=== PATIENT | female | born 1980 | race Caucasian/White ===

== ENCOUNTER → 2021-10-19 12:27 | Outpatient (CLI) | payer BC, SELFPAY ==
--- NOTE | ~2021-10-19 | MM_ITS ---
EXAMINATION: MM screening natty BI w javan HISTORY: Screening TECHNIQUE: Craniocaudal and mediolateral oblique 3-D tomosynthesis images were obtained and synthetic 2-D images were generated. CAD analysis was submitted and interpreted. COMPARISON: No prior mammogram is available for comparison at this institution. BREAST PARENCHYMAL COMPOSITION: The breasts are heterogeneously dense, which may obscure small masses FINDINGS: There is no evidence of suspicious mass, calcification, or architectural distortion to sugg est malignancy in either breast. There has been no suspicious interval change. IMPRESSION: 1. No mammographic evidence of malignancy. 2. Recommend routine screening mammography in one year. BI-RADS Category 1: Negative Reviewed, dictated and finalized at location A.
== END ==
PROVIDERS: PCP Family Medicine; Visit Provider Obstetrics & Gynecology
DX: Z12.31 Encounter for screening mammogram for malignant neoplasm of breast (principal)
CPT/HCPCS: 77063; 77067

== ENCOUNTER 2021-12-04 13:04 | Outpatient (CLI) | payer BC, SELFPAY ==
--- NOTE | ~2021-12-04 | US_ITS ---
US axilla RT 12/04/2021 14:08 Indication: Right axillary swelling Procedure: High-resolution Limited ultrasound of the right axilla Comparison: No prior studies for comparison. Findings: Normal heterogeneous echotexture in the right axilla. No discrete mass identified. Impression: 1: Normal ultrasound of the right axilla without evidence for mass or fluid collection. Reviewed, dictated and finalized at location A. Impression: 1: Normal ultrasound of the right axilla without evidence for mass or fluid col lection.
== END 2021-12-04 13:05 | disposition home or self-care (01) ==
PROVIDERS: PCP Family Medicine; Visit Provider Obstetrics & Gynecology
DX: M79.89 Other specified soft tissue disorders (principal)
CPT/HCPCS: 76882

== ENCOUNTER → 2022-09-22 08:11 | Outpatient (CLI) | payer BC, SELFPAY ==
--- NOTE | ~2022-09-22 | MMUS_ITS ---
EXAMINATION: MM diagnostic natty RT w javan, US breast RT limited HISTORY: Right breast pain TECHNIQUE: Craniocaudal, mediolateral, and mediolateral oblique 3-D tomosynthesis images of the right breast were performed and synthetic 2-D images were generated. CAD analysis was submitted and interp reted. High resolution limited right breast ultrasound was performed. COMPARISON: 10/19/2021 BREAST PARENCHYMAL COMPOSITION: The breasts are heterogeneously dense, which may obscure small masses . FINDINGS: MAMMOGRAPHIC FINDINGS: No suspicious mass, calcification, or architectural distortion are identified to suggest malignancy. There has been no suspicious interval change. No mammographic correlate is identified for the patient 's reported right breast pain. ULTRASOUND: There is no evidence of focal abnormal solid or cystic mass in the vicinity of the patient's right br east pain. Normal lymph nodes are noted in the right axilla. IMPRESSION: 1. No specific mammographic or sonographic correlate is identified for the patient's right breast roland n. Further evaluation at this time should be based on clinical assessment. Continued follow-up physic al examination is recommended. 2. Recommend routine screening mammography, due on the left in one month. BI-RADS Category 1: Negative Reviewed, dictated and finalized at location A. IMPRESSION: 1. No specific mammographic or sonographic correlate is identified for the roberto ent's right breast pain. Further evaluation at this time should be based on cli nical assessment. Continued follow-up physical examination is recommended. 2. Recommend routine screening mammography, due on the left in one month. BI-RADS Category 1: Negative
== END ==
PROVIDERS: PCP Surgery; Visit Provider Obstetrics & Gynecology
DX: N64.4 Mastodynia (principal)
CPT/HCPCS: 76642; 77061; 77065; G0279

== ENCOUNTER → 2022-12-16 14:54 | Outpatient (CLI) | payer BC, SELFPAY ==
--- NOTE | ~2022-12-16 | MM_ITS ---
EXAMINATION: MM screening [facility] BI w javan HISTORY: Screening TECHNIQUE: Craniocaudal and mediolateral oblique 3-D tomosynthesis images were obtained and synthetic 2-D images were generated. CAD analysis was submitted and interpreted. COMPARISON: Comparison to multiple prior studies sequentially, with oldest reviewed study dated 10/19. BREAST PARENCHYMAL COMPOSITION: There are scattered areas of fibroglandular density. FINDINGS: There is no evidence of suspicious mass, calcification, or architectural distortion to sugg est malignancy in either breast. There has been no suspicious interval change. IMPRESSION: 1. No mammographic evidence of malignancy. 2. Recommend routine screening mammography in one year. BI-RADS Category 1: Negative Reviewed, dictated and finalized at location A.
== END ==
PROVIDERS: PCP Surgery; Visit Provider Obstetrics & Gynecology
DX: Z12.31 Encounter for screening mammogram for malignant neoplasm of breast (principal)
CPT/HCPCS: 77063; 77067

== ENCOUNTER 2023-06-24 07:12 | Outpatient (CLI) | payer BC, SELFPAY ==
--- NOTE | ~2023-06-24 | XR_ITS ---
EXAMINATION: XR abdomen/kub 1V DATE: 06/24/2023 07:27 INDICATION: Unspecified abdominal pain. TECHNIQUE: A supine view of the abdomen on 2 radiographs was obtained. COMPARISON: None. FINDINGS: There are no dilated loops of bowel. There is a large volume of stool in the colon. IMPRESSION: 1. Nonobstructive bowel gas pattern. Reviewed, dictated and finalized at location A.
== END 2023-06-24 07:13 ==
PROVIDERS: PCP Physician Assistant Medical; Visit Provider Physician Assistant Medical
DX: R10.9 Unspecified abdominal pain (principal)
CPT/HCPCS: 74018

== ENCOUNTER 2023-12-18 08:03 | Emergency (ER) | payer BC, SELFPAY ==
--- NOTE | ~2023-12-18 | XR_ITS ---
Clinical Indication: Cough, chest pain PA and lateral views of the chest: Comparison: 02/20/2019 Findings: The lungs are clear, without evidence of focal consolidation or pleural effusion. Cardiome diastinal silhouette is within normal limits. Bones and soft tissues are unremarkable. Impression: Normal chest. Reviewed, dictated and finalized at [facility]. Impression: Normal chest.
--- NOTE | 2023-12-18 08:04 | ED.URI ---
HPI - URI/Sore Throat General Chief Complaint: Upper Respiratory Infection Stated Complaint: cough / congestion Time Seen by Provider: 12/18/23 08:04 Source: patient Mode of arrival: ambulatory Limitations: no limitations History of Present Illness HPI Narrative: Christina is a 43-year-old female patient presenting to the clinic today with complaints of cough and sinus/chest congestion x1 week. She reports she is having a productive cough with green phlegm. She reports a low-grade fever. No shortness of breath or chest pain unless she is coughing. History of chronic sinusitis. Does report a lot of sinus pressure and green nasal drainage. MD elicited complaint: cough and nasal congestion Related Data Home Medications Medication Instructions Recorded Confirmed spironolactone 100 mg tablet 100 mg PO DAILY 04/02/22 12/18/23 spironolactone 50 mg tablet 50 mg PO DAILY 04/02/22 12/18/23 Allergies Allergy/AdvReac Type Severity Reaction Status Date / Time No Known Allergies Allergy Verified 12/18/23 08:22 Review of Systems Review of Systems: Pertinent positives per HPI. Patient denies any fever, chills, rash, visual changes, dizziness, palpitations, nausea, vomiting, diarrhea, constipation, abdominal pain, or any urinary issues. [facility] Past Medical History Medical History Anxiety Migraine Seasonal allergies Surgical History Surgical History H/O sinus surgery 07/2021 Family History Family History Other FH: kidney cancer Skin cancer Social History Social History Smoking status: Never smoker Second hand tobacco smoke exposure: No Alcohol intake: current Alcohol use details: socially Substance use: never Substance use type: does not use Lack of Transportation: No Lack of Food: Never True Current Housing: I Have Housing Concerned About Future Housing: No Difficulty Paying Gas/Electric Bills: No Difficulty Paying for Meds: No Currently Unemployed: No Education: Master's Degree or Higher Difficulty w/ Childcare or Family Care: No Living arrangements: with family Occupation/Education: occupation Additional occupation/education comments: teacher Gender identity (if verbalized by the patient): Female Sexual Orientation (if Verbalized by the Patient): Straight or Heterosexual Spiritual care concerns: No Agree to blood products: Yes Comments At the time of my signature, I reviewed and agree with the nursing past medical, surgical, social, and family history. There is no relevant family history pertinent to the patient complaint. Exam Narrative: General: Well-developed, well nourished, in no apparent distress Head: Normocephalic, atraumatic Eyes: Pupils equally round and reactive to light bilaterally, EOM intact, sclera and conjunctive clear, no discharge, lids normal Ears: TMs intact and congested, ear canals clear, no drainage, grossly hearing normal. Nose: Nares patent, green nasal drainage nasal discharge, moderate inflammation, maxillary and frontal sinus tenderness. Mouth: Oral pharynx without lesions or masses, good dentition, MMM. Postnasal drip Neck: Supple, trachea midline, no enlargement of anterior or posterior cervical nodes, no thyroid masses or goiter palpable. Cardio: Regular rate and rhythm, s1 and s2 normal, no murmur appreciated. Resp: Clear to auscultation bilaterally, no rhonchi, rales, wheezing or rubs Course Course Emergency Course: Portions of this record may have been created with voice recognition software. Level of Care: Express Care Visit Vital Signs Vital signs: Vital signs reviewed MDM - URI/Sore Throat MDM Narrative Medical decision making narrative: At the time of visit patient
[2023-12-18 08:11] VITALS: BP 109/58; PULSE 80; RESP 17; TEMP 36.1; O2SAT 100
== END 2023-12-18 09:22 | disposition home or self-care (01) ==
PROVIDERS: Emergency Provider Nurse Practitioner Family; PCP Family Medicine
DX: J01.00 Acute maxillary sinusitis, unspecified (principal)
CPT/HCPCS: 71046; 99213; G0463

== ENCOUNTER 2023-12-19 15:24 | Outpatient (CLI) | payer BC, SELFPAY ==
--- NOTE | ~2023-12-19 | MM_ITS ---
EXAMINATION: MM screening natty BI w javan HISTORY: Screening TECHNIQUE: Craniocaudal and mediolateral oblique 3-D tomosynthesis images were obtained and synthetic 2-D images were generated. CAD analysis was submitted and interpreted. COMPARISON: Comparison to multiple prior studies sequentially, with oldest reviewed study dated 10/19. BREAST PARENCHYMAL COMPOSITION: Not dense: There are scattered areas of fibroglandular density. FINDINGS: There is no evidence of suspicious mass, calcification, or architectural distortion to sugg est malignancy in either breast. There has been no suspicious interval change. IMPRESSION: 1. No mammographic evidence of malignancy. 2. Recommend routine screening mammography in one year. BI-RADS Category 1: Negative Reviewed, dictated and finalized at location B.
== END 2023-12-19 15:25 | disposition home or self-care (01) ==
LOC: MICIMG 15:24
PROVIDERS: PCP Obstetrics & Gynecology; Visit Provider Obstetrics & Gynecology
DX: Z12.31 Encounter for screening mammogram for malignant neoplasm of breast (principal)
CPT/HCPCS: 77063; 77067

== ENCOUNTER 2024-02-21 09:01 | Emergency (ER) | payer BC, SELFPAY ==
--- NOTE | ~2024-02-21 | XR_ITS ---
EXAMINATION: XR chest 2V DATE: 02/21/2024 09:45 INDICATION: Cough. TECHNIQUE: Frontal and lateral views of the chest were obtained. COMPARISON: Chest 2 views 12/18/2023 FINDINGS: There is no pneumonia, pleural effusion, or pneumothorax. The heart size is normal. IMPRESSION: 1. No acute cardiopulmonary disease. Reviewed, dictated and finalized at location A. ING MACHINE OPERATOR
[2024-02-21 09:22] VITALS: BP 114/61; PULSE 99; RESP 18; TEMP 36.4; O2SAT 99
--- NOTE | 2024-02-21 09:31 | ED_ITS ---
HPI - URI/Sore Throat General Chief Complaint: Upper Respiratory Infection Stated Complaint: cough/congestion Time Seen by Provider: 02/21/24 09:31 Source: patient Mode of arrival: ambulatory Limitations: no limitations History of Present Illness HPI Narrative: 43-year-old female presents with complaint of sinus congestion, sinus pressure, purulent drainage for 2 weeks. Reports cough for 4-5 days. Increase in fatigue, body aches, chills. Reports chest pain with coughing. Taking [id number] medications to treat symptoms with no relief. All systems reviewed and negative except as noted above. Related Data Home Medications ?Medication ?Instructions ?Recorded ?Confirmed ?Last Taken ?Type spironolactone 100 mg tablet 100 mg PO DAILY 04/02/22 12/18/23 Unknown History spironolactone 50 mg tablet 50 mg PO DAILY 04/02/22 12/18/23 Unknown History Allergies Allergy/AdvReac Type Severity Reaction Status Date / Time No Known Allergies Allergy Verified 02/21/24 09:50 Review of Systems Review of Systems: CONSTITUTIONAL: Denies fever, chills, or sweats. reports fatigue. EYES: Denies visual changes, redness, or discharge. ENT: reports rhinorrhea, congestion, sinus pressure. Denies sore throat, or otalgia. CARDIOVASCULAR: Denies chest pain, palpitations, or edema. RESPIRATORY: Reports cough chest congestion, pain with coughing. Denies dyspnea. GASTROINTESTINAL: Denies abdominal pain, nausea, vomiting, or diarrhea. GENITOURINARY: Denies dysuria or hematuria. SKIN: Denies rash or itching. MUSCULOSKELETAL: Denies back pain, joint pain . Reports myalgia. NEUROLOGIC: Denies headache, numbness, or weakness. PSYCHIATRIC: Denies anxiety or depression. All other systems reviewed are negative, except as documented in HPI. COUNT INCLUDES THE [facility] Past Medical History Medical History Anxiety Migraine Seasonal allergies Surgical History Surgical History H/O sinus surgery 07/2021 Family History Family History Other FH: kidney cancer Skin cancer Social History Social History (Reviewed 12/18/23 @ 08:05 by DAIJA Newton Smoking status: Never smoker Second hand tobacco smoke exposure: No Alcohol intake: current Alcohol use details: socially Substance use: never Substance use type: does not use Lack of Transportation: No Lack of Food: Never True Current Housing: I Have Housing Concerned About Future Housing: No Difficulty Paying Gas/Electric Bills: No Difficulty Paying for Meds: No Currently Unemployed: No Education: Master's Degree or Higher Difficulty w/ Childcare or Family Care: No Living arrangements: with family Occupation/Education: occupation Additional occupation/education comments: teacher Gender identity (if verbalized by the patient): Female Sexual Orientation (if Verbalized by the Patient): Straight or Heterosexual Spiritual care concerns: No Agree to blood products: Yes Comments At time of signature, agree with nursing past medical, surgical, social and f amily history. There is no relevant family history pertinent to the presenting complaint. Exam Narrative: GENERAL: This is a well-nourished, well-developed patient, in no apparent distress. HEAD: normocephalic, atraumatic. EYES: PERRL. Sclera clear/white. Vision is grossly intact. EARS: External ears normal, auditory canals clear and without drainage, TMs normal without perforation. Hearing grossly intact. NOSE: External nose normal with purulent nasal drainage, erythema and swelling to bilateral nares, moderate congestion, maxillary sinus tenderness on palpation bilaterally. THROAT: Mucous membranes moist, posterior pharynx clear. NECK: Neck supple, non-tender without lymphadenopathy, masses or thyromegaly. CARDIOVASCULAR: Regular rate and rhythm without murmurs, gallops, or rubs. RESPIRATORY: Decreased to bilateral lower lung matehw. Breath sounds equal bilaterally. No wheezes, rales, or rhonchi. SKIN: warm, Dry, intact with no suspicious lesions or rash, good texture and turgor. NEURO: awake, alert, and oriented to person, place and time. There were no obvious focal neurologic abnormalities. EXTREMITIES: No joint tenderness, effusion, or edema noted. Course Course Level of Care: Express Care Visit Vital Signs Vital signs: Vital Signs Temperature 36.4 C L 02/21/24 09:22 Pulse Rate 99 02/21/24 09:22 Respiratory Rate 18 02/21/24 09:22 Blood Pressure 114/61 02/21/24 09:22 Pulse Oximetry 99 02/21/24 09:22 Oxygen Delivery Room Air 02/21/24 09:22 Temperature 36.4 C L 02/21/24 09:22 Pulse Rate 99 02/21/24 09:22 Respiratory Rate 18 02/21/24 09:22 Blood Pressure 114/61 02/21/24 09:22 Pulse Oximetry 99 02/21/24 09:22 Oxygen Delivery Room Air 02/21/24 09:22 Reviewed MDM - URI/Sore Throat MDM Narrative Medical decision making narrative: positive for influenza A. Patient offered Tamiflu but did not feel was necessary. Will treat with antibiotic for bacterial sinusitis due to duration of symptoms and exam findings. Patient is well-appearing, nontoxic. Patient is aware of diagnosis, understands and agrees to treatment plan. Anticipatory guidance given. Patient agrees to follow-up as directed and is aware of reasons to seek care at the emergency department. Portions of this record may have been created with voice recognition software Imaging Data My impression: Agree with radiologist Radiologist's impression: EXAMINATION: XR chest 2V DATE: 02/21/2024 09:45 INDICATION: Cough. TECHNIQUE: Frontal and lateral views of the chest were obtained. COMPARISON: Chest 2 views 12/18/2023 FINDINGS: There is no pneumonia, pleural effusion, or pneumothorax. The heart size is normal. IMPRESSION: 1. No acute cardiopulmonary disease. Discharge Plan Discharge Clinical Impression: Influenza A, Acute bacterial sinusitis Patient Disposition: Home, Self-Care Condition: Stable Instructions: Antibiotic Form, Sinusitis (ED), Influenza (ED) Additional Instructions: your chest x-ray was normal today. You were positive for influenza A. Influenza is a virus and symptoms may last 10-14 days. I am prescribing an antibiotic today due to having sinus congestion for 2 weeks. Take antibiotic as prescribed until gone. Take Tylenol or ibuprofen every 6-8 hours as needed for pain and fever. Drink at least 64 oz of water a day. Follow-up with your primary care physician if symptoms are not improving. Patient Language: Korean Prescriptions: New benzonatate 200 mg capsule 200 mg PO TID PRN (Reason: cough) Qty: 20 0RF prednisone 20 mg tablet 40 mg PO DAILY 5 Days Qty: 10 0RF amoxicillin 875 mg tablet 875 mg PO Q12H 7 Days Qty: 14 0RF fluticasone propionate [Children's Flonase Allergy Rlf] 50 mcg/actuation spray,suspension 1 spray intranasal BID Qty: 16 0RF Rx Instructions: administer into each nostril No Action spironolactone 100 mg tablet 100 mg PO DAILY spironolactone 50 mg tablet 50 mg PO DAILY frovatriptan 2.5 mg tablet See Rx Instructions PO .COMPLEX Qty: 9 2RF Rx Instructions: take 1 tab at onset of headache; if no relief, may repeat 1 tab after at least 2 hrs; max = 2 tabs/24 hrs PO lisdexamfetamine 40 mg capsule 40 mg PO DAILY Qty: 30 0RF Follow-up/Referrals: Marli Pan MD [Primary Care Provider] - Time of Disposition: 09:57
[2024-02-21 09:58] LABS: EDCOVIDSCREEN Negative (Negative); EDINFLUASCREEN Positive (Negative); EDINFLUBSCREEN Negative (Negative)
--- OUTSIDE RECORDS SUMMARY | 2024-02-28 14:16 | XMS_ITS | Encounter Summary ---
Author Organization [facility] Address [address] [place] [address]. [place] [address] Care Team Providers Care Intervention Teacher Name Role Phone Unavailable Primary Care Provider Unavailabl e Encounter Details Date Type Department Care Team (Latest Contact Info) Description 09/16/2017 Abstract [facility] Social History Tobacco Use Types Packs/Day Years Used Date Smoking Tobacco: Never Assessed Comments Unknown Sex and Gender Information Value Date Recorded Sex Assigned at Not on file Legal Sex Female 6:11 PM CDT Gender Identity Not on file Sexual Orientation Not on file documented as of this encounter Plan of Treatment Not on file documented as of this encounter Visit Diagnoses Not on filedocumented in this encounter
--- OUTSIDE RECORDS SUMMARY | 2024-02-28 14:16 | XMS_ITS | Encounter Summary ---
Author Organization [facility] Address [address] [place] [address]. [place] [address] [place] [address] Care Team Providers Care Guest Service Supervisor Name Role Phone Unavailable Primary Care Provider Unavailabl e Encounter Details Date Type Department Care Team (Late st Contact Info) Description 06/01/2016 Abstract [facility] Family & Internal Medicine [facility] [address] [place] [address] [place] [address] [place] [address] Social History Tobacco Use Types Packs/Day Years Used Date Smoking Tobacco: Never Assessed Comments Unknown Sex and Gender Information Value Date Recorded Sex Assigned at Not on file Legal Sex Female 6:11 PM CDT Gender Identity Not on file Sexual Orientation Not on file documented as of this encounter Last Filed Vital Signs Vital Sign Reading Time Taken Comments Blood Pressure 120/66 06/01/2016 3:52 PM CDT Pulse 87 06/01/2016 3:52 PM CDT Temperature - - Respiratory Rate - - Oxygen Saturation - - Inhaled Oxygen Concentration - - Weight 80.3 kg (177 lb) 06/01/2016 3:52 PM CDT Height 165.1 cm (5' 5 ) 06/01/2016 3:52 PM CDT Body Mass Index 29.45 06/01/2016 3:52 PM CDT documented in this encounter Progress Notes * Perla Ozuna NP - 06/01/2016 3:30 PM CDT Reason For Visit Acute Follow-Up Visit Chief Complaint F/u on anxiety and med given. Pt stated she is doing great on Venlafaxine bid. She has no other complaints. History of Present Illness Anxiety Disorder (Follow-Up): The patient is being seen for follow-up of anxiety and Pt reports having been on Venlofexine and stopped taking it when ran out of the medication. Pt states when had themedication had been fine. Expresses that she has had both influenza A and B. Her child and herself have experienced it and was not able to get back in for appointment to get the refill. Pt wants to continue. The patient reports doing well and Pt has been restrated on the medication and at this timeis doing well. Pt states has not been able to get in to see a psychiatrist but is still planning onseeing the specialisit. Comorbid Illnesses: depression and insomnia improved. Interval symptoms: stable anxiety, stable restlessness, stable panic attacks and stable depression. Medications: the patient is adherent to her medication regimen, but she denies medication side effects. Review of Systems Constitutional, Eyes, ENT, Cardiovascular, Respiratory, Gastrointestinal, Genitourinary, Musculoskeletal, Integumentary, Neurological, Endocrine and Hematologic review of systems normal except as noted. Psychiatric: anxiety. Active Problems 1. Generalized anxiety disorder (300.02) (F41.1) Past Medical History 1. History of sinusitis (V12.69) (Z87.09) Surgical History 1. Denied: History of Surgery Family History 1. No pertinent family history Social History ? Never a smoker ?? Occasional alcohol use ?? Two children Current Meds 1. Fluticasone Propionate 50 MCG/ACT Nasal Suspension; USE 1 SPRAY IN EACH NOSTRIL TWICE DAILY; Therapy: 04Feb2016 to Recorded 2. Mirena (52 MG) 20 MCG/24HR Intrauterine Intrauterine Device; USE DIRECTED; Therapy: 04Feb2016 to Recorded 3. Venlafaxine HCl ER 37.5 MG Oral Capsule Extended Release 24 Hour; TAKE TWO TABS DAILY; Therapy: 04Feb2016 to (Evaluate:29May2016) Requested for: 29Apr2016; Last Rx:29Apr2016 Ordered 4. ZyrTEC Allergy 10 MG Oral Tablet; TAKE 1 TABLET DAILY; Therapy: [id number] to (Evaluate:05Mar2016) Recorded Allergies 1. No Known Drug Allergies Vitals Recorded: 01Jun2016 03:52PM Temperature 98.2 F Heart Rate 87 Systolic 120 Diastolic 66 O2 Saturation 98 Height 5 ft 5 in Weight 177 lb BMI Calculated 29.45 BSA Calculated 1.88 Physical Exam Constitutional General appearance: No acute distress, well appearing and well nourished. Eyes Conjunctiva and lids: No swelling, erythema or discharge. Ears, Nose, Mouth, and Throat External inspection of ears and nose: Normal. Otoscopic examination: Tympanic membranes translucent with normal light reflex. Canals patent without erythema. Oropharynx: Normal with no erythema, edema, exudate or lesions. Pulmonary Respiratory effort: No increased work of breathing or signs of respiratory distress. Auscultation of lungs: Clear to auscultation. Cardiovascular Palpation of heart: Normal PMI, no thrills. Auscultation of heart: Normal rate and rhythm, normal S1 and S2, without murmurs. Examination of extremities for edema and/or varicosities: Normal. Abdomen Abdomen: Non-tender, no masses. Liver and spleen: No hepatomegaly or splenomegaly. Lymphatic Palpation of lymph nodes in neck: No lymphadenopathy. Musculoskeletal Gait and station: Normal. Digits and nails: Normal without clubbing or cyanosis. Inspection/palpation of joints, bones, and muscles: Normal. Skin Skin and subcutaneous tissue: Normal without rashes or lesions. Neurologic Cranial nerves: Cranial nerves 2-12 intact. Reflexes: 2+ and symmetric. Sensation: No sensory loss. Psychiatric Orientation to person, place, and time: Normal. Mood and affect: Normal. Assessment 1. Generalized anxiety disorder (300.02) (F41.1) Plan Generalized anxiety disorder 1. Venlafaxine HCl ER 37.5 MG Oral Capsule Extended Release 24 Hour; TAKE TWO TABS DAILY Rx By: Perla Ozuna; Dispense: 0 Days ; #:60 Capsule Extended Release 24 Hour; Refill: 1; For: Generalized anxiety disorder; NASREEN = N; Verified Transmission to [employer] # [id number]; Last Updated By: Morgan Rowley; 06/01/2016 4:25:13 PM 2. Follow-up visit in 2 months Outpatient Follow-up Status: Complete Done: 01Jun2016 Ordered; For: Generalized anxiety disorder; Ordered By: Perla Ozuna Performed: Due: 15Jun2016; Last Updated By: Angella Kincaid; 06/01/2016 5:53:05 PM pt is doing very good with the medication Signatures Electronically signed by : Perla Ozuna NP; Jun 01 2016 10:10PM [employer] (Author) documented in this encounter Plan of Treatment Not on file documented as of this encounter Visit Diagnoses Not on filedocumented in this encounter
--- OUTSIDE RECORDS SUMMARY | 2024-02-28 14:16 | XMS_ITS | Encounter Summary ---
Author Organization [facility] Address [address] [place] [address]. [place] [address] Care Team Providers Care Tonnage Compilation Clerk Name Role Phone Unavailable Primary Care Provider Unavailabl e Encounter Details Date Type Department Care Team (Late st Contact Info) Description 03/17/1999 Abstract [facility] [address] [place] [address] , Toby Agrawal MD Social History Tobacco Use Types Packs/Day Years [...]
--- OUTSIDE RECORDS SUMMARY | 2024-02-28 14:16 | XMS_ITS | Encounter Summary ---
Author Organization [facility] Address [address] [place] [address]. [place] [address] [place] [address] Care Team Providers Care Airborne Electronics Analyst Name Role Phone Unavailable Primary Care Provider Unavailabl e Encounter Details Date Type Department Care Team (Late st Contact Info) Description 08/19/2016 Abstract [facility] Family & Internal Medicine [facility] [address] [place] [address] [place] [address] [place] [address] Social History Tobacco Use Types Packs/Day Years Used Date Smoking Tobacco: Never Assessed Comments Unknown Sex and Gender Information Value Date Recorded Sex Assigned at Not on file Legal Sex Female 6:11 PM CDT Gender Identity Not on file Sexual Orientation Not on file documented as of this encounter Last Filed Vital Signs Vital Sign Reading Time Taken Comments Blood Pressure 100/68 08/19/2016 1:22 PM CDT Pulse 87 08/19/2016 1:22 PM CDT Temperature - - Respiratory Rate - - Oxygen Saturation - - Inhaled Oxygen Concentration - - Weight 85.4 kg (188 lb 4 oz) 08/19/2016 1:22 PM CDT Height 165.1 cm (5' 5 ) 08/19/2016 1:22 PM CDT Body Mass Index 31.33 08/19/2016 1:22 PM CDT documented in this encounter Progress Notes * Perla Ozuna NP - 08/19/2016 1:20 PM CDT Chief Complaint F/u on anxiety. Pt stated no other complaints, and feeling good. History of Present Illness Anxiety Disorder (Follow-Up): The patient is being seen for follow-up of anxiety and Improved sincetaking the medicaiton. The patient reports doing well and Pt has been restrated on the medication and at this time is doing well. Pt states has not been able to get in to see a psychiatrist but is still planning on seeing the specialisit. Comorbid Illnesses: depression and insomnia [...] SPRAY IN EACH NOSTRIL TWICE DAILY; Therapy: [id number] to Recorded 2. Mirena (52 MG) 20 MCG/24HR Intrauterine Intrauterine Device; USE DIRECTED; Therapy: [id number] to Recorded 3. Venlafaxine HCl ER 37.5 MG Oral Capsule Extended Release 24 Hour; TAKE TWO TABS DAILY; Therapy: [id number] to (Last Rx:01Jun2016) Requested for: 01Jun2016 Ordered 4. ZyrTEC Allergy 10 MG Oral Tablet; TAKE 1 TABLET DAILY; Therapy: [id number] to (Evaluate:05Mar2016) Recorded Allergies 1. No Known Drug Allergies Vitals Recorded: 19Aug2016 01:22PM Temperature 98.9 F Heart Rate 87 Respiration 16 Systolic 100 Diastolic 68 O2 Saturation 98 Height 5 ft 5 in Weight 188 lb 4 oz BMI Calculated 31.33 BSA Calculated 1.93 Physical Exam Constitutional General appearance: No acute [...] #:60 Capsule Extended Release 24 Hour; Refill: 5; For: Generalized anxiety disorder; NASREEN = N; Sent To: [facility] # [id number] 2. Follow-up visit in 6 months Outpatient Follow-up Status: Hold For - Scheduling Requested for: 19Aug2016 Ordered; For: Generalized anxiety disorder; Ordered By: Perla Ozuna Performed: Due: [id number] Pt is feeling much better, anxiety better and is sleeping well at this time Pt is out of school less stresses but all is better. Signatures Electronically signed by : Perla Ozuna NP; Aug 19 2016 1:42PM SCREED PERSON (Author) documented in this encounter Plan of Treatment Not on file documented as of this encounter Visit Diagnoses Not on filedocumented in this encounter
--- OUTSIDE RECORDS SUMMARY | 2024-02-28 14:16 | XMS_ITS | Encounter Summary ---
Author Organization [facility] Address [address] [place] [address]. [place] [address] Care Team Providers Care Production Engineer Name Role Phone Unavailable Primary Care Provider Unavailabl e Encounter Details Date Type Department Care Team (Latest Contact Info) Description 01/04/2017 Abstract [facility] Zuly Agustin APNP Social History Tobacco Use Types Packs/Day Years Used Date Smoking Tobacco: Never Assessed Comments Unknown Sex and Gender Information Value Date Recorded Sex Assigned at Not on file Legal Sex Female 6:11 PM CDT Gender Identity Not on file Sexual Orientation Not on file documented as of this encounter Plan of Treatment Not on file documented as of this encounter Procedures Procedure Name Priority Date/Time Associated Diagnosis Comments CULTURE STREP A Routine 01/04/2017 3:45 PM TACTICAL INTELLIGENCE OFFICER documented in this encounter Results * CULTURE STREP A (01/04/2017 3:45 PM TACTICAL INTELLIGENCE OFFICER) THROAT CULTURE STREP A ONLY SPECIMEN DESCRIPTION ? - THROAT SPECIAL REQUESTS ? - NO SPECIAL REQUEST CULTURE ?- NO STREPTOCOCCUS PYOGENES (GROUP A) ISOLATED REPORT STATUS ?- FINAL 01/07/2017 [facility] TO [facility] CONVERSION 01/04/2017 3:45 PM TACTICAL INTELLIGENCE OFFICER 01/04/2017 3:45 PM TACTICAL INTELLIGENCE OFFICER Narrative [facility] TO EPIC CONVERSION - 01/07/2017 11:12 AM TACTICAL INTELLIGENCE OFFICER Result Communication: Discussed results with patient us Zuly DOWNS MICROBIOLOGY - GENERAL ORDER CHYNA Final Result [facility] TO EPIC CONVERSION documented in this encounter Visit Diagnoses Not on filedocumented in this encounter
--- OUTSIDE RECORDS SUMMARY | 2024-02-28 14:16 | XMS_ITS | Encounter Summary ---
Author Organization [facility] Address [address] [place] [address]. [place] [address] Care Team Providers Care Glue Maker Bone Name Role Phone Unavailable Primary Care Provider Unavailabl e Encounter Details Date Type Department Care Team (Latest Contact Info) Description 02/09/2016 Abstract [facility] Social History Tobacco Use Types [...]
--- OUTSIDE RECORDS SUMMARY | 2024-02-28 14:16 | XMS_ITS | Encounter Summary ---
Author Organization [facility] Address [address] [place] [address]. [place] [id number] [place], [place] [id number] Care Team Providers Care Cartographic Technician Name Role Phone Unavailable Primary Care Provider Unavailabl e Encounter Details Date Type Department Care Team (Late st Contact Info) Description 02/04/2016 Abstract [facility] Family & Internal Medicine [facility] [address] [place] [address] Kourtney Carias MD Social History Tobacco Use Types Packs/Day Years Used Date Smoking Tobacco: Never Assessed Comments Unknown Sex and Gender Information Value Date Recorded Sex Assigned at Not on file Legal Sex Female 6:11 PM CDT Gender Identity Not on file Sexual Orientation Not on file documented as of this encounter Last Filed Vital Signs Vital Sign Reading Time Taken Comments Blood Pressure 104/70 02/04/2016 9:21 AM [employer] Pulse 88 02/04/2016 9:21 AM [employer] Temperature - - Respiratory Rate - - Oxygen Saturation - - Inhaled Oxygen Concentration - - Weight 82.1 kg (181 lb) 02/04/2016 9:21 AM [employer] Height 165.1 cm (5' 5 ) 02/04/2016 9:21 AM [employer] Body Mass Index 30.12 02/04/2016 9:21 AM [employer] documented in this encounter Progress Notes * Kourtney Carias MD - 02/04/2016 9:00 AM CST Reason For Visit New Patient Visit Chief Complaint 1. Anxiety 2. Nasal Symptoms Here as a new patient, wants to discuss her anxiety. 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 Also just started with some nasal congestion. History of Present Illness Generalized Anxiety Disorder: The patient is being seen for an initial evaluation of an existing diagnosis of anxiety disorder. It is classified as generalized anxiety disorder. Symptoms: palpitations, chest discomfort, trouble breathing, paresthesias, nausea, excessive sweating, hot flashes, excessive worrying, fear of losing control and sleep disturbance, but no abdominal discomfort and no repetitive behaviors. Onset was 1-2 month(s) ago. Onset followed relationship problems, family problems and in grad school. The symptoms occur intermittently and more consistent over the last month. Relieving factors: meditation and exercise. Associated symptoms: poor concentration, memory impairment and depression symptoms, but no irritability, no agitation and no manic symptoms. Suicidal risk: no suicidal thoughts. Homicidal risk: no homicidal thoughts. The patient is not currently being treated for this problem. Current habits include 2 caffeine drinks per day. HPI Free Text: Netti pot rinses daily, zyrtec and fluticasone nasal spray Nasal Symptoms: Associated symptoms include nasal congestion, clear nasal discharge, postnasal drainage and cough, but no facial pain, no fever and no sore throat. Review of Systems Constitutional: no fever and no chills. ENT: nasal discharge. Respiratory: cough. Gastrointestinal: no abdominal pain, no constipation and no diarrhea. Genitourinary: no dysuria. no musculoskeletal symptoms Integumentary: no skin lesions. Neurological: no dizziness. Psychiatric: anxiety, sleep disturbances and depression, but not suicidal. Hematologic/Lymphatic: no tendency for easy bleeding and no tendency for easy bruising. Past Medical History 1. History of sinusitis (V12.69) (Z87.09) Surgical History 1. Denied: History of Surgery Family History Mother 1. No pertinent family history Social History ? Never a smoker ?? Occasional alcohol use ?? Two children Current Meds 1. Fluticasone Propionate 50 MCG/ACT Nasal Suspension; USE 1 SPRAY IN EACH NOSTRIL TWICE DAILY; Therapy: [id number] to Recorded Rx By: Kourtney Carias; Dispense: 0 Days ; #:1 X 16 GM Bottle; Refill: 1; For: Chronic sinusitis; NASREEN =N; Record 2. Mirena (52 MG) 20 MCG/24HR Intrauterine Intrauterine Device; USE DIRECTED; Therapy: [id number] to Recorded Rx By: Dr. Arellano; Dispense: 0 Days ; #: Sufficient Intrauterine Device; Refill: 0; NASREEN = N; Record; Last Updated By: Aida Jarrett; 02/04/2016 9:20:58 AM 3. ZyrTEC Allergy 10 MG Oral Tablet; TAKE 1 TABLET DAILY; Therapy: [id number] to (Evaluate:05Mar2016) Recorded Rx By: Kourtney Carias; Dispense: 30 Days ; #:30 Tablet; Refill: 0; For: Chronic sinusitis; NASREEN = N; Record Allergies 1. No Known Drug Allergies Recorded By: Aida Jarrett; 02/04/2016 9:19:26 AM Vitals Recorded: 04Feb2016 09:21AM Temperature 98.9 F Heart Rate 88 Respiration 16 Systolic 104 Diastolic 70 O2 Saturation 98 Height 5 ft 5 in Weight 181 lb BMI Calculated 30.12 BSA Calculated 1.9 Physical Exam Constitutional General appearance: No acute distress, well appearing and well nourished. Head and Face Head and face: Normal. Palpation of the face and sinuses: Abnormal. does have some mild TTP of maxillary sinuses. Eyes Conjunctiva and lids: No swelling, erythema or discharge. Ears, Nose, Mouth, and Throat Lips, teeth, and gums: Normal, good dentition. Oropharynx: Normal with no erythema, edema, exudate or lesions. Neck Neck: Supple, symmetric, trachea midline, no masses. Thyroid: Normal, no thyromegaly. Pulmonary Respiratory effort: No increased work of breathing or signs of respiratory distress. Auscultation of lungs: Clear to auscultation. Cardiovascular Auscultation of heart: Normal rate and rhythm, normal S1 and S2, no murmurs. Examination of extremities for edema and/or varicosities: Normal. Abdomen Abdomen: Non-tender, no masses. Liver and spleen: No hepatomegaly or splenomegaly. Lymphatic Palpation of lymph nodes in neck: No lymphadenopathy. Musculoskeletal Digits and nails: Normal without clubbing or cyanosis. Psychiatric Judgment and insight: Normal. Orientation to person, place, and time: Normal. Recent and remote memory: Intact. Mood and affect: Normal. Assessment 1. Generalized anxiety disorder (300.02) (F41.1) 2. Chronic sinusitis (473.9) (J32.9) Generalized anxiety with panic disorder. Most of her anxiety seems to manifest as panic attacks. Will start venlafaxine and follow up in 1 month Chronic sinusitis. Feels like may be getting a flare up of symtpoms. already using netti pot daily,flonase, and zyrtec. Advised to call if develops high fevers, increased pain Plan Chronic sinusitis 1. Follow-up visit in 1 month Outpatient Follow-up Status: Hold For - Scheduling Requested for: [id number] Ordered; For: Chronic sinusitis; Ordered By: Kourtney Carias Performed: Due: [id number] Generalized anxiety disorder 2. Venlafaxine HCl ER 37.5 MG Oral Capsule Extended Release 24 Hour; TAKE 1 CAPSULE ONCE DAILY WITH FOOD for 1 week then take two capsules daily for 3 weeks Rx By: Kourtney Carias; Dispense: 30 Days ; #:60 Capsule Extended Release 24 Hour; Refill: 0; For: Generalized anxiety disorder; NASREEN = N; Verified Transmission to [facility] # [id number]; Last Updated By: Morgan Rowley; 02/04/2016 9:44:39 AM Signatures Electronically signed by : Kourtney Carias M.D.; Feb 04 2016 9:59AM [employer] (Author) documented in this encounter Plan of Treatment Not on file documented as of this encounter Visit Diagnoses Not on filedocumented in this encounter
--- OUTSIDE RECORDS SUMMARY | 2024-02-28 14:16 | XMS_ITS | Encounter Summary ---
Author Organization [facility] Address [address] [place] [address]. [place] [id number] [place], [place] [id number] Care Team Providers Care Aquaculture Farm Manager Name Role Phone Unavailable Primary Care Provider Unavailabl e Encounter Details Date Type Department Care Team (Late st Contact Info) Description 02/08/2017 Abstract [facility] Family & Internal Medicine [facility] [address] [place] [address] Kourtney Carias MD Social History [...] Sign Reading Time Taken Comments Blood Pressure 112/70 02/08/2017 10:23 AM AUTOMATION CLERK Pulse 88 02/08/2017 10:23 AM AUTOMATION CLERK Temperature - - Respiratory Rate - - Oxygen Saturation - - Inhaled Oxygen Concentration - - Weight 88 kg (194 lb) 02/08/2017 10:23 AM AUTOMATION CLERK Height 165.1 cm (5' 5 ) 02/08/2017 10:23 AM AUTOMATION CLERK Body Mass Index 32.28 02/08/2017 10:23 AM AUTOMATION CLERK documented in this encounter Progress Notes * Kourtney Carias MD - 02/08/2017 10:20 AM CST Chief Complaint For about 10 days nasal congestion, sore throat, non-productive cough, bilateral ear pain. History of Present Illness Upper Respiratory Infection: The patient is being seen for an initial evaluation of an upper respiratory infection. Symptoms: nasal congestion, sore throat, hoarseness, dry cough and fever, but no chills and no general malaise. The patient is currently experiencing symptoms. Onset was gradual 10 day(s) ago. She describes this as moderate in severity, worsening and ear pain developed 2 days ago. Associated symptoms: ear pain and ear plugging, but no nausea, no vomiting and no diarrhea. Current treatment includes non-prescription cold medication and rinse , mucinex helps some. By report, there is fair symptom control. Pertinent medical history: recurrent sinusitis. Exposure history: an individual with a cough, an individual with an upper respiratory infection and son with positive strep. Review of Systems Constitutional: fever, feeling poorly and feeling tired. ENT: earache, nosebleeds, sore throat and nasal discharge. Cardiovascular: no chest pain. Respiratory: cough, but no shortness of breath. Gastrointestinal: no abdominal pain. Neurological: no dizziness. Active Problems 1. Generalized anxiety disorder (300.02) (F41.1) 2. Upper respiratory infection, acute (465.9) (J06.9) 3. Wears contact lenses (V41.0) (Z97.3) 4. Wears glasses (V49.89) (Z97.3) Past Medical History 1. History of sinusitis (V12.69) (Z87.09) Surgical History 1. Denied: History of Surgery Family History Mother 1. No pertinent family history Social History ?? Active advance directive (V49.89) (Z78.9) ?? Completed graduate school, masters degree ?? Daily caffeine consumption ?? 2 cups of coffee daily ?? Dental care, regularly ?? twice yearly ? Exercises regularly ?? House ? Never a smoker ?? Occasional alcohol use ?? 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 Three children ?? Two children Immunizations Influenza --- Series1: 04-Jan-2017 Current Meds 1. Fluticasone Propionate 50 MCG/ACT Nasal Suspension; USE 1 SPRAY IN EACH NOSTRIL TWICE DAILY; Therapy: 04Feb2016 to Recorded Rx By: Kourtney Carias; Dispense: 0 Days ; #:1 X 16 GM Bottle; Refill: 1; For: PMH: History of chronic sinusitis; NASREEN = N; Record 2. Mirena (52 MG) 20 MCG/24HR Intrauterine Intrauterine Device; USE DIRECTED; Therapy: [id number] to Recorded Rx By: Dr. Arellano; Dispense: 0 Days ; #: Sufficient Intrauterine Device; Refill: 0; NASREEN = N; Record; Last Updated By: Aida Jarrett; 02/04/2016 9:20:58 AM 3. Venlafaxine HCl ER 37.5 MG Oral Capsule Extended Release 24 Hour; TAKE 2 CAPSULES BY MOUTH DAILY; Therapy: 04Feb2016 to (Evaluate:16Feb2017) Requested for: 17Jan2017; Last Rx:17Jan2017 Ordered Rx By: Perla Ozuna; Dispense: 30 Days ; #:60 Capsule; Refill: 0; For: Generalized anxiety disorder; NASREEN = N; Verified Transmission to [facility]; Last Updated By: [employer] [employer] [facility]; 01/17/2017 12:46:59 PM 4. ZyrTEC Allergy 10 MG Oral Tablet; TAKE 1 TABLET DAILY; Therapy: 04Feb2016 to (Evaluate:05Mar2016) Recorded Rx By: Kourtney Carias; Dispense: 30 Days ; #:30 Tablet; Refill: 0; For: PMH: History of chronic sinusitis; NASREEN = N; Record Allergies 1. No Known Drug Allergies Recorded By: Aida Jarrett; 02/04/2016 9:19:26 AM Vitals Recorded: 08Feb2017 10:23AM Temperature 98.4 F Heart Rate 88 Respiration 16 Systolic 112 Diastolic 70 O2 Saturation 98 Height 5 ft 5 in Weight 194 lb BMI Calculated 32.28 BSA Calculated 1.95 Physical Exam Constitutional General appearance: No acute distress, well appearing and well nourished. voice hoarse.. Eyes Conjunctiva and lids: No swelling, erythema or discharge. Ears, Nose, Mouth, and Throat Otoscopic examination: Abnormal. minimal erythema on TM. Oropharynx: Abnormal. erythema no exudates.. Pulmonary Respiratory effort: No increased work of breathing or signs of respiratory distress. Auscultation of lungs: Clear to auscultation. Cardiovascular Auscultation of heart: Normal rate and rhythm, normal S1 and S2, without murmurs. Examination of extremities for edema and/or varicosities: Normal. Abdomen Abdomen: Non-tender, no masses. Musculoskeletal Digits and nails: Normal without clubbing or cyanosis. Psychiatric Orientation to person, place, and time: Normal. Mood and affect: Normal. Assessment 1. Acute sinusitis, recurrence not specified, unspecified location (461.9) (J01.90) Acute sinusitis. had augmentin in nov will try azithro this time. Advised to try holding flonase and see if helps with nosebleeds. Since starting back up again rec going back to ENT who had rec surgery Plan Acute sinusitis, recurrence not specified, unspecified location 1. Azithromycin 250 MG Oral Tablet; TAKE 2 TABLETS ON DAY 1 THEN TAKE 1 TABLET A DAY FOR 4 DAYS Rx By: Kourtney Carias; Dispense: 0 Days ; #:1 X 6 Tablet Box; Refill: 0; For: Acute sinusitis, recurrence not specified, unspecified location; NASREEN = N; Verified Transmission to [facility] # [id number]; Last Updated By: Morgan Rowley; 02/08/2017 10:40:43 AM Make sure to drink plenty of fluids and get plenty of rest, try tylenol or ibuprofen OTC PRN for myalgias/chills RTC as scheduled or sooner if no improvement Signatures Electronically signed by : Kourtney Carias M.D.; Feb 08 2017 10:43AM AUTOMATION CLERK (Author) documented in this encounter Plan of Treatment Not on file documented as of this encounter Visit Diagnoses Not on filedocumented in this encounter
--- OUTSIDE RECORDS SUMMARY | 2024-02-28 14:16 | XMS_ITS | Encounter Summary ---
Author Organization [facility] Address [address] [place] [address]. [place] [address] Care Team Providers Care Panel Sewer Name Role Phone Unavailable Primary Care Provider Unavailabl e Reason for Visit * Reason Comments Report (SCAN) [facility] - History and Physical Encounter Details Date Type Department Care Team ([facility] Contact Info) Description 03/20/2018 Scan HEALTH INFO [facility] Scanned, Documents Report (SCAN) ([facility] - History and Physical) Social History Tobacco Use Types Packs/Day Years [...]
--- OUTSIDE RECORDS SUMMARY | 2024-02-28 14:16 | XMS_ITS | Encounter Summary ---
Author Organization [facility] Address [address] [place] [address]. [place] [id number] [place], [place] [id number] Care Team Providers Care Director Digital Communications Name Role Phone Unavailable Primary Care Provider Unavailabl e Encounter Details Date Type Department Care Team (Late st Contact Info) Description 10/21/2016 Abstract [facility] Medical Group Family & Internal Medicine [facility] [address] [place] [address] Kehinde Schuster MD Social History Tobacco Use Types Packs/Day Years Used Date Smoking Tobacco: Never Assessed Comments Unknown Sex and Gender Information Value Date Recorded Sex Assigned at Not on file Legal Sex Female 6:11 PM CDT Gender Identity Not on file Sexual Orientation Not on file documented as of this encounter Last Filed Vital Signs Vital Sign Reading Time Taken Comments Blood Pressure 112/64 10/21/2016 3:15 PM CDT Pulse 86 10/21/2016 3:15 PM CDT Temperature - - Respiratory Rate - - Oxygen Saturation - - Inhaled Oxygen Concentration - - Weight 87.5 kg (193 lb) 10/21/2016 3:15 PM CDT Height - - Body Mass Index 32.12 08/19/2016 1:22 PM CDT documented in this encounter Progress Notes * Kehinde Schuster MD - 10/21/2016 3:00 PM CDT Reason For Visit Acute Visit Chief Complaint 1. Cold Symptoms C/o sore throat, dry cough, headache, for 3 days History of Present Illness HPI Free Text: A 36-year-old lady, very pleasant. She has a history of chronic sinusitis in the past. For the last6 months, rather unusual, she did not have any episodes but at this time it is acting up again, a lot of nasal congestion, pressure in the paranasal area. Tympanic membranes were normal. Some posterior drainage noted, headache. Cold Symptoms: Dilcia Camacho presents with complaints of sudden onset of constant episodes of moderate cold symptoms. Episodes started 3 days ago. Associated symptoms include nasal congestion, runny nose, post nasal drainage, scratchy throat, hoarseness, dry cough, facial pressure, headache, plugged ear(s) and ear pain, but no fever. Review of Systems See HPI for pertinent positives. Constitutional: no fever, no chills and no headache. ENT: see HPI. Cardiovascular: no chest pain, no intermittent leg claudication, no palpitations and no lower extremity edema. Respiratory: no shortness of breath, no cough, no wheezing, no shortness of breath during exertion and no PND. Gastrointestinal: no abdominal pain, no constipation, no heartburn, no vomiting, no diarrhea and nomelena. Genitourinary: no dysuria and no incontinence. Integumentary: no skin lesions and no skin rash. Musculoskeletal: no arthralgias, no joint swelling, no limb pain, no joint pain and no joint stiffness. Neurological: no confusion, no dizziness, no limb weakness and no difficulty walking. Psychiatric: no anxiety, no suicidal ideation and no depression. Active Problems 1. Generalized anxiety disorder (300.02) [...] MCG/24HR Intrauterine Intrauterine Device; USE DIRECTED; Therapy: [id number] to Recorded 3. Venlafaxine HCl ER 37.5 MG Oral Capsule Extended Release 24 Hour; TAKE TWO TABS DAILY; Therapy: 04Feb2016 to (Last Rx:19Aug2016) Requested for: 19Aug2016 Ordered 4. ZyrTEC Allergy 10 MG Oral Tablet; TAKE 1 TABLET DAILY; Therapy: 04Feb2016 to (Evaluate:05Mar2016) Recorded Allergies 1. No Known Drug Allergies Vitals Recorded: [id number] 03:15PM Temperature 98.6 F Heart Rate 86 Systolic 112 Diastolic 64 O2 Saturation 97, RA Weight 193 lb BMI Calculated 32.12 BSA Calculated 1.95 Physical Exam Constitutional General appearance: No acute distress, well appearing and well nourished. Eyes Conjunctiva and lids: No swelling, erythema or discharge. Ears, Nose, Mouth, and Throat See HPI. Pulmonary Respiratory effort: No increased work of breathing or signs of respiratory distress. Auscultation of lungs: Clear to auscultation. Cardiovascular Auscultation of heart: Normal rate and rhythm, normal S1 and S2, without murmurs. Examination of extremities for edema and/or varicosities: Normal. Abdomen Abdomen: Non-tender, no masses. Lymphatic Palpation of lymph nodes in neck: No lymphadenopathy. Musculoskeletal Gait and station: Normal. Inspection/palpation of joints, bones, and muscles: Normal. Skin Skin and subcutaneous tissue: Normal without rashes or lesions. Neurologic Cranial nerves: Cranial nerves 2-12 intact. Reflexes: 2+ and symmetric. Psychiatric Orientation to person, place, and time: Normal. Mood and affect: Normal. Assessment 1. Acute sinusitis (461.9) (J01.90) Plan Acute sinusitis 1. Cefdinir 300 MG Oral Capsule; 1 po bid for 10 days Rx By: Kehinde Schuster; Dispense: 0 Days ; #:20 Capsule; Refill: 0; For: Acute sinusitis; NASREEN =N; Verified Transmission to [place] # [id number]; Last Updated By: Morgan Rowley; 10/21/2016 3:44:37 PM Discussion/Summary At this time, I am going to recommend some Flonase over the counter and also I am going to give hersome Omnicef 300 mg twice a day for the next 10 days. Recommended to drink plenty of fluids. She does have also laryngitis. Her voice is gone. Encouraged her to use a nice hot shower before bedtime with a lot of steam or vapor and that should do it. Signatures Electronically signed by : Kehinde Schuster M.D.; Oct 28 2016 10:42AM FLUID POWER MECHANIC (Author) documented in this encounter Plan of Treatment Not on file documented as of this encounter Visit Diagnoses Not on filedocumented in this encounter
--- OUTSIDE RECORDS SUMMARY | 2024-02-28 14:16 | XMS_ITS | Encounter Summary ---
Author Organization [facility] Address [address] [place] [address]. [place] [address] [place] [address] Care Team Providers Care Fiber Glass Worker Name Role Phone Unavailable Primary Care Provider Unavailabl e Encounter Details Date Type Department Care Team (Late st Contact Info) Description 04/29/[address] [facility] Medical Group Family & Internal Medicine [facility] [address] [place] [address] [place] [address] [place] [address] Social History Tobacco Use Types [...] Reading Time Taken Comments Blood Pressure 104/70 04/29/2016 3:52 PM WRIST HEMMER Pulse 104 04/29/2016 3:52 PM WRIST HEMMER Temperature - - Respiratory Rate - - Oxygen Saturation - - Inhaled Oxygen Concentration - - Weight 80.7 kg (178 lb) 04/29/2016 3:52 PM WRIST HEMMER Height 165.1 cm (5' 5 ) 04/29/2016 3:52 PM WRIST HEMMER Body Mass Index 29.62 04/29/2016 3:52 PM WRIST HEMMER documented in this encounter Progress Notes * Perla Ozuna NP - 04/29/2016 3:30 PM CST Reason For Visit Acute Follow-Up Visit Chief Complaint Acute f/u on anxiety and Venlafaxine med. Pt stated she taken it for a month and stopped after due to not being able to make it into office, she and her family had the flu twice. She stated while on med she was doing great. She noticed large change when she took bid. History of Present Illness Anxiety Disorder (Follow-Up): [...] wants to continue. The patient reports doing poorly. Comorbid Illnesses: depression and insomnia. Interval symptoms: worsened anxiety, worsened restlessness, worsened panic attacks and worsened depression. Medications: the patient is not adherent to her medication regimen and she denies medication side effects. Review of [...] SPRAY IN EACH NOSTRIL TWICE DAILY; Therapy: [id number] to Recorded 2. Mirena (52 MG) 20 MCG/24HR Intrauterine Intrauterine Device; USE DIRECTED; Therapy: [id number] to Recorded 3. Venlafaxine HCl ER 37.5 MG Oral Capsule Extended Release 24 Hour; TAKE 1 CAPSULE ONCE DAILY WITH FOOD for 1 week then take two capsules daily for 3 weeks; Therapy: [id number] to (Evaluate:05Mar2016) Requested for: [id number]; Last Rx:[id number] Ordered 4. ZyrTEC Allergy 10 MG Oral Tablet; TAKE 1 TABLET DAILY; Therapy: 69Vcr8937 to (Evaluate:05Mar2016) Recorded Allergies 1. No Known Drug Allergies Vitals Recorded: 29Apr2016 03:52PM Temperature 98.2 F Heart Rate 104 Systolic 104 Diastolic 70 O2 Saturation 98 Height 5 ft 5 in Weight 178 lb BMI Calculated 29.62 BSA Calculated 1.88 Physical Exam Constitutional General [...] disorder; NASREEN = N; Verified Transmission to [facility] # [id number]; Last Updated By: Morgan Rowley; 04/29/2016 4:11:02 PM 2. Follow-up visit in 1 month Outpatient Follow-up Status: Hold For - Scheduling Requested for: 29Apr2016 Ordered; For: Generalized anxiety disorder; Ordered By: Perla Ozuna Performed: Due: 13May2016 pt has used this medication before and explained was sleeping better and having much less anxiety. will start with one tablet daily for about 7 days and increase to the two tabs daily. Will return inone month and will evaluate the therapy. If needs something before that time will return to be seen. Signatures Electronically signed by : Perla Ozuna NP; Apr 29 2016 8:41PM WRIST HEMMER (Author) documented in this encounter Plan of Treatment Not on file documented as of this encounter Visit Diagnoses Not on filedocumented in this encounter
--- OUTSIDE RECORDS SUMMARY | 2024-02-28 14:16 | XMS_ITS | Encounter Summary ---
Author Organization [facility] Address [address] [place] [address]. [place] [address] Care Team Providers Care Electro Tech Name Role Phone Unavailable Primary Care Provider Unavailabl e Encounter Details Date Type Department Care Team (Latest Contact Info) Description 01/06/2017 Abstract [facility] Medical Group Social History Tobacco Use Types Packs/Day Years Used Date Smoking Tobacco: Never Assessed Comments Unknown Sex and Gender Information Value Date Recorded Sex Assigned at Not on file Legal Sex Female 6:11 PM CDT Gender Identity Not on file Sexual Orientation Not on file documented as of this encounter Progress Notes * HIMANSHU Stark - 01/06/2017 4:37 PM CST Verified Results Group A Streptococcus Culture [id number] 03:45PM Zuly Agustin Test Name Result Flag Reference Group A Streptococcus Culture SPECIMEN DESCRIPTION - THROAT SPECIAL REQUESTS - NO SPECIAL REQUEST CULTURE - GROWTH PRESENT BUT INSUFFICIENT FOR ANALYSIS. THE CULTURE WILL BE RE- EXAMINED IN CULTURE - ONE DAY. documented in this encounter Plan of Treatment Not on file documented as of this encounter Visit Diagnoses Not on filedocumented in this encounter
--- OUTSIDE RECORDS SUMMARY | 2024-02-28 14:16 | XMS_ITS | Encounter Summary ---
Author Organization [facility] Address [address] [place] [address]. [place] [address] Care Team Providers Care Medical Office Administrator Name Role Phone Unavailable Primary Care Provider Unavailabl e Encounter Details Date Type Department Care Team (Latest Contact Info) Description 08/12/2016 Abstract [facility] Medical Group Social History Tobacco Use Types [...]
--- OUTSIDE RECORDS SUMMARY | 2024-02-28 14:16 | XMS_ITS | Encounter Summary ---
Author Organization [facility] Address [address] [place] [address]. [place] [address] [place] [address] Care Team Providers Care Secondary School Teacher Librarian Name Role Phone Unavailable Primary Care Provider Unavailabl e Encounter Details Date Type Department Care Team (Late st Contact Info) Description 07/08/2018 Abstract [facility] [address] [place] [address] Renetta Castañeda FNP [address] [place] [address] Social History Tobacco Use Types Packs/Day Years [...] Procedure Name Priority Date/Time Associated Diagnosis Comments STREP A, DNA Routine 07/08/2018 11:55 AM CDT RAPID STREP A STAT 07/08/2018 11:55 AM CDT INFLUENZA A & B STAT 07/08/2018 11:55 AM CDT documented in this encounter Results * STREP A, DNA (07/08/2018 11:55 AM CDT) STREP A MOLECULAR NEGATIVE NEGATIVE 07/08/2018 1:05 PM CDT [facility] Comment: NOTE: A negative result is highly sensitivefor S. pyogenes in throat specimens.This test does not distinguish between viableand non-viable organisms.If the result is negative and symptomspersist, additional testing is recommended torule out other pathogens. 07/08/2018 11:5 5 AM CDT us Generic Conversion Md BR[facility]W MICROBIOLOGY - GENERAL ORDERABLES Final Result Performing Organization Address City/[facility]/ZIP Co de Phone Number [facility] [address] [place] [address], [place] [phone] * RAPID STREP A (07/08/2018 11:55 AM CDT) RAPID STREP TEST NEGATIVE NEGATIVE 07/08/2018 12:08 PM CDT [facility] SERUM OR PLASMA SPECIMEN / Unknown 07/08/2018 11:55 AM CDT 07/08/2018 12:07 PM CDT Comment:ACELLULAR BLOOD (SER UM OR PLASMA) SPECIMEN us Generic Conversion Md BRADSHAW MICROBIOLOGY - GENERAL ORDERABLES Final Result Performing Organization Address [facility]/ZIP Co de Phone Number [facility] [address] [place] [address], [place] [phone] * INFLUENZA A & B (07/08/2018 11:55 AM CDT) SPECIMEN TYPE NASAL 07/08/2018 12:07 PM CDT [facility] INFLUENZA A NEGATIVE NEGATIVE 07/08/2018 12:17 PM CDT [facility] INFLUENZA B NEGATIVE NEGATIVE 07/08/2018 12:17 PM CDT [facility] 07/08/2018 11:5 5 AM CDT 07/08/2018 12:07 PM CDT us Generic Conversion Md BRADSHAW MICROBIOLOGY - GENERAL ORDERABLES Final Result Performing Organization Address City/[facility]/ZIP Co de Phone Number [facility] [address] [place] [address], documented in this encounter Visit Diagnoses Diagnosis Acute upper respiratory infection Acute upper respiratory infections of unspecified site documented in this encounter
--- OUTSIDE RECORDS SUMMARY | 2024-02-28 14:16 | XMS_ITS | Encounter Summary ---
Author Organization [facility] Address [address] [place] [address]. [place] [address] Care Team Providers Care Store Receiving Clerk Name Role Phone Unavailable Primary Care Provider Unavailabl e Encounter Details Date Type Department Care Team (Latest Contact Info) Description 02/17/2017 Abstract [facility] Medical Group Social History Tobacco Use Types Packs/Day Years Used Date Smoking Tobacco: Never Assessed Comments Unknown Sex and Gender Information Value Date Recorded Sex Assigned at Not on file Legal Sex Female 6:11 PM CDT Gender Identity Not on file Sexual Orientation Not on file documented as of this encounter Progress Notes * Generic Conversion MD Kevon - 02/17/2017 3:09 PM CST Message Recorded as Task Date: 02/17/2017 02:40 PM, Created By: Aury Boykin Task Name: Call Back Assigned To: [facility] Nurse Team Regarding Patient: Dilcia Mccloud, Status: Active Comment: Aury Boykin - 17 Feb 2017 2:40 PM TASK CREATED Christina from [facility] in [place] called because pt's insurance will not cover 2 tabs a day of the venlafaxine. Can they give her 75 mg tabs once a day? Call them back [phone] Angelia Estrada - 17 Feb 2017 2:47 PM TASK EDITED printed to discuss with Perla. Angelia Estrada 17 Feb 2017 3:09 PM TASK EDITED per Perla ocampo to try. Angelia Estrada 17 Feb 2017 3:11 PM TASK EDITED new rx escribed Plan 1. Venlafaxine HCl ER 37.5 MG Oral Capsule Extended Release 24 Hour Rx By: Perla Ozuna; Dispense: 30 Days ; #:60 Capsule; Refill: 0; For: Generalized anxiety disorder; NASREEN = N; Verified Transmission to [facility] # [id number]; Last Updated By: Angelia Estrada;02/17/2017 3:10:42 PM 2. Venlafaxine HCl ER 75 MG Oral Capsule Extended Release 24 Hour; TAKE 1 CAPSULE ONCE DAILY WITH FOOD Rx By: Perla Ozuna; Dispense: 30 Days ; #:30 Capsule; Refill: 0; For: Generalized anxiety disorder; NASREEN = N; Sent To: [facility] # [id number]; Last Updated By: Angelia Estrada; 02/17/2017 3:10:52 PM Signatures Electronically signed by : Angelia Estrada, ; Feb 17 2017 3:11PM MANAGER BUSINESS INTELLIGENCE (Author) documented in this encounter Plan of Treatment Not on file documented as of this encounter Visit Diagnoses Not on filedocumented in this encounter
--- OUTSIDE RECORDS SUMMARY | 2024-02-28 14:16 | XMS_ITS | Encounter Summary ---
Author Organization [facility] Address [address] [place] [address]. [place] [address] Care Team Providers Care Associate Director Of Development Name Role Phone Unavailable Primary Care Provider Unavailabl e Encounter Details Date Type Department Care Team (Latest Contact Info) Description 01/07/[address] [facility] Medical Group Social History Tobacco Use Types Packs/Day Years Used Date Smoking Tobacco: Never Assessed Comments Unknown Sex and Gender Information Value Date Recorded Sex Assigned at Not on file Legal Sex Female 6:11 PM CDT Gender Identity Not on file Sexual Orientation Not on file documented as of this encounter Progress Notes * HIMANSHU Stark - 01/07/2017 1:32 PM CST Verified Results Group A Streptococcus Culture [id number] 03:45PM Zuly Agustin Test Name Result Flag Reference Group A Streptococcus Culture SPECIMEN DESCRIPTION - THROAT SPECIAL REQUESTS - NO SPECIAL REQUEST CULTURE - NO STREPTOCOCCUS PYOGENES (GROUP A) ISOLATED REPORT STATUS - FINAL 01/07/2017 documented in this encounter Plan of Treatment Not on file documented as of this encounter Visit Diagnoses Not on filedocumented in this encounter
--- OUTSIDE RECORDS SUMMARY | 2024-02-28 14:16 | XMS_ITS | Clinical Summary ---
Author Organization [facility] Address [address] [place] [address]. [place] [address] Care Team Providers Care Check Embosser Name Role Phone Unavailable Primary Care Provider Unavailabl e Social History Tobacco Use Types Packs/Day Years Used Date Smoking Tobacco: Never Assessed Comments Unknown Sex and Gender Information Value Date Recorded Sex Assigned at Not on file Legal Sex Female 6:11 PM CDT Gender Identity Not on file Sexual Orientation Not on file Last Filed Vital Signs Vital Sign Reading Time Taken Comments Blood Pressure 112/70 02/08/2017 10:23 AM PENSIONHOLDER INFORMATION CLERK Pulse 88 02/08/2017 10:23 AM PENSIONHOLDER INFORMATION CLERK Temperature - - Respiratory Rate - - Oxygen Saturation - - Inhaled Oxygen Concentration - - Weight 88 kg (194 lb) 02/08/2017 10:23 AM PENSIONHOLDER INFORMATION CLERK Height 165.1 cm (5' 5 ) 02/08/2017 10:23 AM PENSIONHOLDER INFORMATION CLERK Body Mass Index 32.28 02/08/2017 10:23 AM PENSIONHOLDER INFORMATION CLERK Plan of Treatment Health Maintenance Due Date Last Done Comments Cervical Cancer Screening Pa p Smear (Age 30 to 64) Every 3 Years 1982 Annual Physical 1985 Hepatitis C 2000 DTaP, Tdap and Td Vaccines ( 1 - Tdap) 2001 Hepatitis B Vaccines (1 of 3 - 19+ 3-dose series) 2001 Cervical Cancer Screening Pa p with HPV Testing (Age 30 to 64) Every 5 Years 2012 Cervical Cancer Screening with HPV 2012 Mammogram Screening 2022 COVID-19 Vaccine ( - 2023-2 5 season) 2023 Influenza Adult (#1) 2023 01/04/2017 HPV Vaccines Aged Out No longer eligi ble based on patient's age to complete this topic Meningococcal Vaccine Aged Out No pepe mayra eligible based on patient's age to complete this topic Pneumococcal Vaccine: Pediat rics (0 to 5 Years) and At-Risk Patients (6 to 64 Years) Aged Out No longer eligi ble based on patient's age to complete this topic RSV Immunizations Under 20 Months Aged Out No longer eligible based on patient's age to complete this topic
--- OUTSIDE RECORDS SUMMARY | 2024-02-28 14:16 | XMS_ITS | Encounter Summary ---
Author Organization [facility] Address [address] [place] [address]. [place] [id number] [place], [place] [id number] Care Team Providers Care Embedded Developer Name Role Phone Unavailable Primary Care Provider Unavailabl e Encounter Details Date Type Department Care Team (Late st Contact Info) Description 01/04/2017 Abstract [facility] Family & Internal Medicine [facility] [address] [place] [address] Zuly Agustin APNP Social History Tobacco Use [...] Sign Reading Time Taken Comments Blood Pressure 108/62 01/04/2017 3:01 PM MARKETING ASSISTANT [employer]AIL [employer] Pulse 82 01/04/2017 3:01 PM MARKETING ASSISTANT [employer] Temperature - - Respiratory Rate - - Oxygen Saturation - - Inhaled Oxygen Concentration - - Weight 87.1 kg (192 lb) 01/04/2017 3:01 PM MARKETING ASSISTANT [employer] Height 165.1 cm (5' 5 ) 01/04/2017 3:01 PM MARKETING ASSISTANT [employer] Body Mass Index 31.95 01/04/2017 3:01 PM MARKETING ASSISTANT [employer] documented in this encounter Progress Notes * HIMANSHU Stark - 01/04/2017 3:00 PM CST Verified Results *Influenza A + B Test In Office 04Jan2017 03:59PM Zuly Agustin Test Name Result Flag Reference Flu A Negative Flu B Negative Internal QC Verified Yes *Rapid Strep Test In Office 04Jan2017 03:57PM Zuly Agustin Test Name Result Flag Reference *Rapid Strep In Office Presumptive Negative Internal QC Verified Yes Plan Upper respiratory infection, acute ?? *Influenza A + B Test In Office; Status:Complete; Done: 04Jan2017 03:59PM ?? *Rapid Strep Test In Office; Status:Complete; Done: 04Jan2017 03:57PM ?? Group A Streptococcus Culture; Status:In Progress - Specimen/Data Collected; Done: 04Jan2017 Source: : Throat ?? Influenza Type A / B Rapid Ag; Status:Canceled - Manual Activation; ?? Rapid Strep Group A Ag Screen; Status:Canceled - Manual Activation; * HIMANSHU Stark - 01/04/2017 3:00 PM CST Reason For Visit Reason For Visit: Acute Visit Chief Complaint pt c/o drainage down throat, congestion, cough, fatigue. taking OTC Mucinex day and night. History of Present Illness Upper Respiratory Infection (Brief): The patient is being seen for an initial evaluation of this episode of an upper respiratory infection. Symptoms: nasal congestion, runny nose, sore throat, productive cough, facial pain, facial pressure, ear pain and hoarseness The patient presents with complaints of occasional episodes of colored sputum (Green). Symptom Cluster Details: she reports the symptoms are worsening. x 1 week. Associated Symptoms: general malaise,fever, headache and myalgias, but no chills. Current Treatment: Current treatment includes acetaminophen, non-prescription cold medication, nasal corticosteroids, allergy medications and increased fluid intake. By report, there is good adherence with treatment, good tolerance of treatment and poor symptom control. Evaluation and Treatment History: Previously seen by ENT, declined recommended sinus surgery. Review of Systems Constitutional: fever, feeling poorly, feeling tired and headache, but no chills. ENT: earache, sore throat and hoarseness. Cardiovascular: Normal. Respiratory: cough, but no shortness of breath. Gastrointestinal: (Decreased appetite). Genitourinary: Normal. Integumentary: Normal. Musculoskeletal: Normal. Neurological: Normal. Psychiatric: Normal. Active Problems 1. Generalized anxiety disorder (300.02) (F41.1) 2. Wears contact lenses (V41.0) (Z97.3) 3. Wears glasses (V49.89) (Z97.3) Past Medical History History of acute sinusitis (V12.69) (Z87.09) History of sinusitis (V12.69) (Z87.09) Patient indicats no significant past medical history. Surgical History Denied: History of Surgery Patient indicates no past surgical history. Family History No pertinent family history Patient indicates no significant family history of disease. Social History Active advance directive (V49.89) (Z78.9) Completed graduate school, masters degree Daily caffeine consumption ?? 2 cups of coffee daily Dental care, regularly ?? 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 Current Meds 1. Fluticasone Propionate 50 MCG/ACT Nasal Suspension; USE 1 SPRAY IN EACH NOSTRIL TWICE DAILY; Therapy: 04Feb2016 Recorded Rx By: Kourtney Carias; Dispense: 0 Days ; #:1 X 16 GM Bottle; Refill: 1; For: PMH: History of chronic sinusitis; NASREEN = N; Record 2. Mirena (52 MG) 20 MCG/24HR Intrauterine Intrauterine Device; USE DIRECTED; Therapy: 04Feb2016 Recorded Rx By: Dr. Arellano; Dispense: 0 Days ; #: Sufficient Intrauterine Device; Refill: 0; NASREEN = N; Record; Last Updated By: Aida Jarrett; 02/04/2016 9:20:58 AM 3. Venlafaxine HCl ER 37.5 MG Oral Capsule Extended Release 24 Hour; TAKE TWO TABS DAILY; Therapy: 04Feb2016 to (Last Rx:19Aug2016) Requested for: 19Aug2016 Ordered Rx By: Perla Ozuna; Dispense: 0 Days ; #:60 Capsule Extended Release 24 Hour; Refill: 5; For: Generalized anxiety disorder; NASREEN = N; Verified Transmission to [facility]; Last Updated By: Morgan Rowley; 08/19/2016 1:43:23 PM 4. ZyrTEC Allergy 10 MG Oral Tablet; TAKE 1 TABLET DAILY; Therapy: 04Feb2016 to (Evaluate:05Mar2016) Recorded Rx By: Kourtney Carias; Dispense: 30 Days ; #:30 Tablet; Refill: 0; For: PMH: History of chronic sinusitis; NASREEN = N; Record Allergies 1. No Known Drug Allergies Recorded By: Aida Jarrett; 02/04/2016 9:19:26 AM Vitals Recorded: 04Jan2017 03:01PM Temperature 98.3 F Heart Rate 82 Respiration 16 Systolic 108 Diastolic 62 O2 Saturation 98 Height 5 ft 5 in Weight 192 lb BMI Calculated 31.95 BSA Calculated 1.94 Physical Exam Constitutional General appearance: Abnormal. acutely ill, uncomfortable and appears tired. Eyes Conjunctiva and lids: No swelling, erythema or discharge. Ears, Nose, Mouth, and Throat External inspection of ears and nose: Normal. Otoscopic examination: Abnormal. Exam of the right middle ear showed a middle ear effusion serous. Exam of the left middle ear showed a middle ear effusion serous. Oropharynx: Abnormal. There was 1+ enlargement of both tonsils. There was of the right tonsil exudate. The posterior pharynx was erythematous. Pulmonary Respiratory effort: No increased work of breathing or signs of respiratory distress. Auscultation of lungs: Clear to auscultation. Cardiovascular Auscultation of heart: Normal rate and rhythm, normal S1 and S2, without murmurs. Lymphatic Palpation of lymph nodes in neck: No lymphadenopathy. Musculoskeletal Gait and station: Normal. Psychiatric Orientation to person, place, and time: Normal. Mood and affect: Normal. Results/Data *Influenza A + B Test In Office 04Jan2017 03:59PM Zuly Agustin Test Name Result Flag Reference Flu A Negative Flu B Negative Internal QC Verified Yes *Rapid Strep Test In Office 04Jan2017 03:57PM Zuly Agustin Test Name Result Flag Reference *Rapid Strep In Office Presumptive Negative Internal QC Verified Yes Assessment 1. Upper respiratory infection, acute (465.9) (J06.9) Plan Upper respiratory infection, acute 1. Amoxicillin-Pot Clavulanate 875-125 MG Oral Tablet; TAKE 1 TABLET EVERY 12 HOURS UNTIL GONE Rx By: Zuly Agustin; Dispense: 7 Days ; #:14 Tablet; Refill: 0; For: Upper respiratory infection, acute; NASREEN = N; Sent To: [facility] # [id number] 2. PredniSONE 20 MG Oral Tablet; TAKE 2 TABLET Daily Rx By: Zuly Agustin; Dispense: 4 Days ; #:8 Tablet; Refill: 0; For: Upper respiratory infection,acute; NASREEN = N; Sent To: [facility] # [id number] 3. Influenza Type A / B Rapid Ag; Status:Canceled - Manual Activation; Perform:[facility]; Due:[id number]; Last Updated By:Naila Aparicio; 01/04/2017 4:00:02 PM;Ordered; For:Upper respiratory infection, acute; Ordered By:Zuly Agustin; 4. Rapid Strep Group A Ag Screen; Status:Canceled - Manual Activation; Perform:[facility]; Due:[id number]; Last Updated By:Naila Aparicio; 01/04/2017 4:00:02 PM;Ordered; For:Upper respiratory infection, acute; Ordered By:Zuly Agustin; Discussion/Summary Acute URI - rapid strep and flu in office. Will treat w/ augmentin BID x7 days. Encourage continuing supportive care measures w/ increased fluids & rest. Continue antihistamine, steroid nasal spray & OTC cold medication. FU PRN. Given Flu shot in office today Signatures Electronically signed by : Zuly Agustin NP; Jan 04 2017 4:56PM MARKETING ASSISTANT [employer] (Author) documented in this encounter Plan of Treatment Not on file documented as of this encounter Procedures Procedure Name Priority Date/Time Associated Diagnosis Comments INFLUENZA A & B Routine 01/04/2017 3:59 PM MARKETING ASSISTANT [employer] STREP A RAPID Routine 01/04/2017 3:57 PM MARKETING ASSISTANT [employer] documented in this encounter Results * INFLUENZA A & B (01/04/2017 3:59 PM MARKETING ASSISTANT [employer]) INFULENZA A AB Negative [facility] OUP TO EPIC CONVERSION INFLUENZA B AB Negative [facility] OUP TO EPIC CONVERSION Internal Control: Yes [facility] TO EPIC CONVERSION 01/04/2017 3:59 PM MARKETING ASSISTANT [employer] 01/04/2017 3:59 PM MARKETING ASSISTANT [employer] Narrative [facility] TO EPIC CONVERSION - 01/04/2017 3:59 PM MARKETING ASSISTANT [employer] Result Communication: Discussed results with patient us Zuly GONZALEZNP MICROBIOLOGY - GENERAL ORDER CHYNA Final Result [facility] TO EPIC CONVERSION * STREP A RAPID (01/04/2017 3:57 PM MARKETING ASSISTANT [employer]AIL [employer]) [facility] Signature RAPID STREP TEST Presumptive Negative [facility] TO EPIC CONVERSION Internal Control: Yes [facility] TO EPIC CONVERSION 01/04/2017 3:57 PM MARKETING ASSISTANT [employer] 01/04/2017 3:57 PM MARKETING ASSISTANT [employer] Narrative [facility] TO EPIC CONVERSION - 01/04/2017 3:57 PM MARKETING ASSISTANT [employer] Result Communication: Discussed results with patient us Zuly DOWNS MICROBIOLOGY - GENERAL ORDER CHYNA Final Result [facility] TO EPIC CONVERSION documented in this encounter Visit Diagnoses Not on filedocumented in this encounter
--- OUTSIDE RECORDS SUMMARY | 2024-02-28 14:16 | XMS_ITS | Encounter Summary ---
Author Organization [facility] Address [address] [place] [address]. [place] [address] Care Team Providers Care Real Estate Recruiter Name Role Phone Unavailable Primary Care Provider Unavailabl e Encounter Details Date Type Department Care Team (Latest Contact Info) Description 07/08/2018 Scan HEALTH INFO SRV[facility] Scanned, Documents Social History Tobacco Use Types Packs/Day Years [...]
--- OUTSIDE RECORDS SUMMARY | 2024-02-28 14:16 | XMS_ITS | Encounter Summary ---
Author Organization [facility] Address [address] [place] [address]. [place], [place] [id number] [place] [address] Care Team Providers Care Detective Captain Name Role Phone Unavailable Primary Care Provider Unavailabl e Encounter Details Date Type Department Care Team (Late st Contact Info) Description 01/04/2017 Abstract [facility] [address] [place] [id number] Zuly Agustin APNP Social History Tobacco Use [...] CULTURE STREP A Routine 01/04/2017 3:45 PM VIDEO PRODUCTION ENGINEER documented in this encounter Results * CULTURE STREP A (01/04/2017 3:45 PM VIDEO PRODUCTION ENGINEER) SPEC DESCRIPTION THROAT 01/04/2017 5:46 PM VIDEO PRODUCTION ENGINEER [facility] SPECIAL REQUESTS NO SPECIAL REQUEST 01/04/2017 5:46 PM VIDEO PRODUCTION ENGINEER [facility] CULTURE RESULT NO STREPTOCOCCUS PYOGENES (GROUP A) ISOLATED 01/07/2017 11:12 AM VIDEO PRODUCTION ENGINEER [facility] THROAT SWAB / Unknown 01/04/2017 3:45 PM VIDEO PRODUCTION ENGINEER 01/04/2017 5:53 PM VIDEO PRODUCTION ENGINEER us Generic Conversion Md [facility] MICROBIOLOGY - GENERAL ORDERABLES Final Result [facility] [address] [place] [address], [place] [phone] [facility] [address] [place] [address], [place] [phone] documented in this encounter Visit Diagnoses Diagnosis Acute upper respiratory infection Acute upper respiratory infections of unspecified site documented in this encounter
--- OUTSIDE RECORDS SUMMARY | 2024-02-28 14:18 | XMS_ITS | Clinical Summary ---
Author Organization [facility] [address] Address [address] [place] [id number] Care Team Providers Care Zipper Joiner Name Role Phone Marli Pan MD Primary Care Provider [phone] Allergies No known active allergies Medications busPIRone (BUSPAR) 10 mg tablet Take by mouth 2 (two) times a day as needed 3 Active benzonatate (TESSALON) 200 mg capsuleIndication s:Acute recurrent pansinusitis Take 1 capsule (200 mg total) by mouth 3 (three) times a day as needed for cough 30 capsule 3 Active Active Problems No known active problems Social History Tobacco Use Types Packs/Day Years Used Date Smoking Tobacco: Never Assessed Comments Unknown Sex and Gender Information Value Date Recorded Sex Assigned at Not on file Legal Sex Female 8:58 AM WEATHERCASTER Gender Identity Not on file Sexual Orientation Not on file Obstetrics History Last Filed Vital Signs Vital Sign Reading Time Taken Comments Blood Pressure 101/71 05/06/2022 5:37 PM WEATHERCASTER Pulse 104 05/06/2022 5:37 PM WEATHERCASTER Temperature 36.9 ??C (98.4 ??F) 05/06/2022 5:37 PM CS T Respiratory Rate 16 05/06/2022 5:37 PM WEATHERCASTER Oxygen Saturation 97% 05/06/2022 5:37 PM WEATHERCASTER Inhaled Oxygen Concentration - - Weight 82.1 kg (181 lb) 05/06/2022 5:37 PM WEATHERCASTER Height 167.6 cm (5' 6 ) 05/06/2022 5:37 PM WEATHERCASTER Body Mass Index 29.21 05/06/2022 5:37 PM WEATHERCASTER Plan of Treatment Health Maintenance Due Date Last Done Comments Breast Cancer Screening-Mammogram 1982 Cervical Cancer Screening 1982 Depression Screening 1982 Hepatitis C Screening 1982 DTaP/Tdap/Td Vaccine (1 - Tdap) 1993 Varicella Vaccines (1 of 2 - 13+ 2-dose series) 05/29/1995 Hepatitis B Screening 2000 Regular Well Visit/Exam 18-64 2000 Influenza Vaccine (#1) 2023 HPV Vaccines Aged Out No longer eligi ble based on patient's age to complete this topic Pneumococcal vaccine <65 Aged Out No longer eligible based on patient's age to complete this topic Insurance [employer] [place] [employer] [place] Care Teams Zipper Joiner Relationship Specialty Start Date End Date Maril Pan MD PCP - General Family Medicine 05/06/22
--- OUTSIDE RECORDS SUMMARY | 2024-02-28 14:18 | XMS_ITS | Encounter Summary ---
Author Organization [facility] Address [address] [place] [address] Care Team Providers Care Laboratory Apparatus Glass Blower Name Role Phone Marli Pan MD Primary Care Provider [phone] Encounter Details Date Type Department Care Team (Latest Contact Info) Description 05/06/2022 6:41 PM POLL CLERK - 05/06/2022 11:59 PM POLL CLERK Hospital Encounter [address] [address] Acute recurrent pansinusitis Discharge Disposition: Discharge to home or self care Social History Tobacco Use Types Packs/Day Years Used Date Smoking Tobacco: Never Assessed Comments Unknown Sex and Gender Information Value Date Recorded Sex Assigned at Not on file Legal Sex Female 8:58 AM POLL CLERK Gender Identity Not on file Sexual Orientation Not on file documented as of this encounter Medications at Time of Discharge benzonatate (TESSALON) 200 mg capsuleIndications :Acute recurrent pansinusitis Take 1 capsule (200 mg total) by mouth 3 (three) times a day as needed for cough 30 capsule 05/06/2022 busPIRone (BUSPAR) 10 mg tablet Take by mouth 2 (two) times a day as needed 04/02/2022 amoxicillin-clavul anate (AUGMENTIN) 875-125 mg per tabletIndications: Acute recurrent pansinusitis Take 1 tablet by mouth 2 (two) times a day for 7 days 14 tablet 05/06/2022 documented as of this encounter Discharge Disposition Disposition Code Departure Means Destination Discharge to home or self care documented in this encounter Miscellaneous Notes * Result Encounter Note - Tiffany Pino NP - 05/06/2022 11:59 PM POLL CLERK Please alert patient of negative strep culture. Patient should continue tylenol/ibuprofen as directed for discomfort and f/u with PCP if symptoms persist. CLERK documented in this encounter Plan of Treatment Not on file documented as of this encounter Procedures Procedure Name Priority Date/Time Associated Diagnosis Comments THROAT CULTURE Routine 05/06/2022 6:41 PM POLL CLERK Acute recurrent pansinusitis documented in this encounter Results * Throat culture Throat (05/06/2022 6:41 PM POLL CLERK) Report Final Report: No growth of pathogens. JUSTICE DANIELS Comment:Testing performed by : [facility], [address] [place] [address]., [id number] Throat 05/06/2022 6:41 PM POLL CLERK 05/07/2022 7:30 AM POLL CLERK Narrative JUSTICE DANIELS - 05/08/2022 7:28 AM POLL CLERK Testing performed by [facility] Microbiology Laboratory ([phone]). Tiffany Pino NP LAB MICROBIOLOGY - GENERAL ORD ERABLES Final Result JUSTICE [id number] [address] Department of Laboratories [place], [place] [phone] documented in this encounter Visit Diagnoses Diagnosis Acute recurrent pansinusitis documented in this encounter Care Teams Laboratory Apparatus Glass Blower Relationship Specialty Start Date End Date Marli Pan MD PCP - General Family Medicine 05/06/22 documented as of this encounter
--- OUTSIDE RECORDS SUMMARY | 2024-02-28 14:18 | XMS_ITS | Encounter Summary ---
Author Organization [facility] Medical Group Address [address] [address] Care Team Providers Care Metallurgical Engineering Teacher Name Role Phone Marli Pan MD Primary Care Provider [phone] Reason for Visit * Reason Comments Sore Throat Sinus pain, cough fo r over a week and a half. Encounter Details Date Type Department Care Team (Late st Contact Info) Description 05/06/2022 5:30 PM SALES REPRESENTATIVE PRINTING SUPPLIES Office Visit [facility] Outpatient Center [address] [phone] [place] [address] [place] [address] [address] [place] [address] Acute recurrent pansinusitis (Primary Dx) Social History Tobacco Use Types Packs/Day Years Used Date Smoking Tobacco: Never Assessed Comments Unknown Sex and Gender Information Value Date Recorded Sex Assigned at Not on file Legal Sex Female 8:58 AM SALES REPRESENTATIVE PRINTING SUPPLIES Gender Identity Not on file Sexual Orientation Not on file documented as of this encounter Last Filed Vital Signs Vital Sign Reading Time Taken Comments Blood Pressure 101/71 05/06/2022 5:37 PM SALES REPRESENTATIVE PRINTING SUPPLIES Pulse 104 05/06/2022 5:37 PM SALES REPRESENTATIVE PRINTING SUPPLIES Temperature 36.9 ??C (98.4 ??F) 05/06/2022 5:37 PM CS T Respiratory Rate 16 05/06/2022 5:37 PM SALES REPRESENTATIVE PRINTING SUPPLIES Oxygen Saturation 97% 05/06/2022 5:37 PM SALES REPRESENTATIVE PRINTING SUPPLIES Inhaled Oxygen Concentration - - Weight 82.1 kg (181 lb) 05/06/2022 5:37 PM SALES REPRESENTATIVE PRINTING SUPPLIES Height 167.6 cm (5' 6 ) 05/06/2022 5:37 PM SALES REPRESENTATIVE PRINTING SUPPLIES Body Mass Index 29.21 05/06/2022 5:37 PM SALES REPRESENTATIVE PRINTING SUPPLIES documented in this encounter Patient Instructions * Patient Instructions* Tiffany Pino, PARACHUTE RIGGER - 05/06/2022 5:30 PM SALES REPRESENTATIVE PRINTING SUPPLIES Symptomatic treatments include: -Over the counter antihistamine such as loratadine (Claritin) or cetirizine (Zyrtec) to reduce secretions. The D formula includes pseudoephedrine and can be helpful as a decongestant but SHOULD NOTBE USED IF YOU HAVE A HISTORY OF HIGH BLOOD PRESSURE. -Coricidin HBP may be taken for congestion if you have a history of high blood pressure. -Tessalon, Dextromethorphan (Robitussin) or Delsym for cough -Guafenesin (Mucinex) to thin secretions -Acetaminophen (Tylenol), ibuprofen (Motrin, Advil), or Aleve (naproxen) for pain or fever. -The use of hypertonic saline to irrigate nasal passageways can be helpful. Over the counter systems include Neti Pot and Nasopure. Use with distilled water. -Salt water gargles and throat lozenges can be helpful for sore throat. -To prevent spreading the illness to others cover your sneeze and cough into your arm and not your hand, don't allow others to eat or drink with the same utensils or glass, and use hand tire tester before touching people or common surfaces. -Apply warm packs to face to facilitate sinus drainage. - Use cool mist humidifier in bedroom at night. -Increase fluid consumption and Rest. -Follow up with your PCP in 1 week or sooner if symptoms worsen or are not improving as planned. -If you experience any shortness of breath, chest pain, or high fever >101, go to the Emergency Room. Use alternate method of control for the entire course of antibiotics and one week after the last dose of antibiotics, if applicable. GO TO EMERGENCY ROOM OR CALL 911 WITH ANY OF THE FOLLOWING SYMPTOMS: HIGH, PERSISTENT FEVER >101; SWELLING, INFLAMMATION, OR REDNESS AROUND EYES, ABNORMAL EYE MOVEMENTS, CHEST PAIN, SHORTNESS OF BREATH, VISION CHANGES (DOUBLE VISION OR IMPAIRED VISION); SEVERE HEADACHE; ALTERED MENTAL STATUS. THESE ARE SIGNS OF A RARE, BUT SERIOUS COMPLICATION AND REQUIRES IMMEDIATE EMERGENCY ATTENTION. S REPRESENTATIVE PRINTING SUPPLIES * Attachments The following attachments cannot be sent through Care Everywhere. * Sinusitis (Community Health Representative) (Citizen Of [place]) documented in this encounter Ordered Prescriptions Prescription Sig Dispense Quantity Refills Last Filled Start Date End Date benzonatate (TESSALON) 200 mg capsuleIndications :Acute recurrent pansinusitis Take 1 capsule (200 mg total) by mouth 3 (three) times a day as needed for cough 30 capsule 05/06/2022 amoxicillin-clavul anate (AUGMENTIN) 875-125 mg per tabletIndications: Acute recurrent pansinusitis Take 1 tablet by mouth 2 (two) times a day for 7 days 14 tablet 05/06/2022 3 documented in this encounter Progress Notes * Tiffany Pino NP - 05/06/2022 5:30 PM CST Images from the original note were not included. Patient ID: Hannah Mccloud is a 41 y.o. female followed by Marli Pan MD Chief Complaint Patient presents with Sore Throat Sinus pain, cough for over a week and a half. Patient presents to the clinic with reports of sinus pressure, cough, sore throat, and congestion for almost 2 weeks. Denies fevers, chest pain, difficulty breathing, rash, body aches, and vomiting. She has taken cold medications for her symptoms. Patient reports a history of 2 sinus surgeries in the past. Review of Systems Constitutional: Negative for chills, fatigue and fever. HENT: Positive for congestion, postnasal drip, sinus pressure and sore throat. Negative for ear pain and rhinorrhea. Respiratory: Positive for cough. Negative for chest tightness, shortness of breath and wheezing. Cardiovascular: Negative for chest pain. Gastrointestinal: Negative for diarrhea, nausea and vomiting. Musculoskeletal: Negative for myalgias. Neurological: Negative for headaches. Vitals: 05/06/22 1737 BP: 101/71 Pulse: 104 Resp: 16 Temp: 36.9 ??C (98.4 ??F) SpO2: 97% Weight: 82.1 kg (181 lb) Height: 167.6 cm (5' 6 ) Recent Results (from the past 24 hour(s)) POCT rapid strep A Collection Time: 05/06/22 5:58 PM Result Value Ref Range Rapid Strep A, POC Negative Negative POC Influenza A/B, COVID-19 antigen Collection Time: 05/06/22 5:58 PM Result Value Ref Range Influenza A Ag, POC Negative Negative Influenza B Ag, POC Negative Negative COVID-19 Ag POC Presumptive Negative Presumptive Negative, Invalid Physical Exam Vitals reviewed. Constitutional: General: She is not in acute distress. Appearance: She is well-developed. She is not ill-appearing. HENT: Right Ear: Ear canal and external ear normal. A middle ear effusion is present. Tympanic membrane is not injected, erythematous or bulging. Left Ear: Ear canal and external ear normal. A middle ear effusion is present. Tympanic membrane isnot injected, erythematous or bulging. Nose: Congestion and rhinorrhea present. Right Sinus: Maxillary sinus tenderness and frontal sinus tenderness present. Left Sinus: Maxillary sinus tenderness and frontal sinus tenderness present. Mouth/Throat: Lips: [place]. Mouth: Mucous membranes are moist. Pharynx: Uvula midline. Posterior oropharyngeal erythema present. No pharyngeal swelling or oropharyngeal exudate. Tonsils: No tonsillar exudate. Cardiovascular: Rate and Rhythm: Normal rate and regular rhythm. Pulmonary: Effort: Pulmonary effort is normal. No respiratory distress. Breath sounds: Normal breath sounds. No wheezing or rhonchi. Comments: Cough observed Lymphadenopathy: Cervical: No cervical adenopathy. Skin: General: Skin is warm and dry. Neurological: Mental Status: She is alert and oriented to person, place, and time. Diagnoses and all orders for this visit: Acute recurrent pansinusitis (Primary) - POCT rapid strep A - POC Influenza A/B, COVID-19 antigen - amoxicillin-clavulanate (AUGMENTIN) 875-125 mg per tablet; Take 1 tablet by mouth 2 (two) times aday for 7 days - benzonatate (TESSALON) 200 mg capsule; Take 1 capsule (200 mg total) by mouth 3 (three) times a day as needed for cough Orders Placed This Encounter Procedures POCT rapid strep A POC Influenza A/B, COVID-19 antigen Order Specific Question: Is the Patient experiencing symptoms consistent with COVID? Answer: Yes Order Specific Question: Date of Symptom Onset Answer: 04/28/2022 Order Specific Question: Is the patient hospitalized? Answer: No Order Specific Question: Is the patient admitted to an ICU? Answer: No Order Specific Question: Is this the first COVID-19 test for this patient? Answer: No Order Specific Question: Does the patient currently work in a healthcare facility with direct patient contact? Answer: No Order Specific Question: Is the patient a resident of a congregate care or living setting? Answer: No Order Specific Question: ? Answer: No Assessment/Plan # acute sinus infection --likely bacterial given symptoms, duration of illness, and assessment. --exam findings warrant antibiotics. Started Augmentin --recommended to continue cold/sinus medications and sinus rinse. --ED presentation with one or more of the following symptoms: fever uncontrolled with antipyretics,shortness of breath, chest discomfort, uncontrolled n/v/d --f/u with PCP in 5-7 days if symptoms do not improve/worsen Disposition Treatment plan including expectations, follow up, and return precautions discussed with patient/parent, verbalizes understanding. Medication dosage, use, and potential adverse reactions discussed with patient/parent. Advised to follow up with PCP if symptoms do not resolve as expected or sooner if condition worsens. Discussed Signs/symptoms warranting ER evaluation including worsening fever, increased shortness ofbreath, chest pain, severe N/V/D, or any other worrisome symptoms Patient and/or guardian was given an opportunity to ask questions, questions answered. Patient Education Research has proven that unless you are running a fever, sinus infections are typically viral untildays 9-10. Finish the entire antibiotic prescription. Take this with food. Eat yogurt or take probiotic daily while on antibiotics. Symptomatic treatments include: -Over the counter antihistamine such as loratadine (Claritin) or cetirizine (Zyrtec) to reduce secretions. The D formula includes pseudoephedrine and can be helpful as a decongestant but SHOULD NOTBE USED IF YOU HAVE A HISTORY OF HIGH BLOOD PRESSURE. -Coricidin HBP may be taken for congestion if you have a history of high blood pressure. -Tessalon, Dextromethorphan (Robitussin) or Delsym for cough -Guafenesin (Mucinex) to thin secretions -Acetaminophen (Tylenol), ibuprofen (Motrin, Advil), or Aleve (naproxen) for pain or fever. -The use of hypertonic saline to irrigate nasal passageways can be helpful. Over the counter systems include Neti Pot and Nasopure. Use with distilled water. -Salt water gargles and throat lozenges can be helpful for sore throat. -To prevent spreading the illness to others cover your sneeze and cough into your arm and not your hand, don't allow others to eat or drink with the same utensils or glass, and use hand tire tester before touching people or common surfaces. -Apply warm packs to face to facilitate sinus drainage. - Use cool mist humidifier in bedroom at night. -Increase fluid consumption and Rest. -Follow up with your PCP in 1 week or sooner if symptoms worsen or are not improving as planned. -If you experience any shortness of breath, chest pain, or high fever >101, go to the Emergency Room. Use alternate method of control for the entire course of antibiotics and one week after the last dose of antibiotics, if applicable. GO TO EMERGENCY ROOM OR CALL 911 WITH ANY OF THE FOLLOWING SYMPTOMS: HIGH, PERSISTENT FEVER >101; SWELLING, INFLAMMATION, OR REDNESS AROUND EYES, ABNORMAL EYE MOVEMENTS, CHEST PAIN, SHORTNESS OF BREATH, VISION CHANGES (DOUBLE VISION OR IMPAIRED VISION); SEVERE HEADACHE; ALTERED MENTAL STATUS. THESE ARE SIGNS OF A RARE, BUT SERIOUS COMPLICATION AND REQUIRES IMMEDIATE EMERGENCY ATTENTION. Tiffany Pino NP S REPRESENTATIVE PRINTING SUPPLIES documented in this encounter Miscellaneous Notes * Addendum Note - August Correa MA - 05/06/2022 5:30 PM CSTAddended by: AUGUST CORREA on: 05/06/2022 06:41 PM Modules accepted: Orders S REPRESENTATIVE PRINTING SUPPLIES documented in this encounter Plan of Treatment Not on file documented as of this encounter Procedures Procedure Name Priority Date/Time Associated Diagnosis Comments POC INFLUENZA A/B, COVID-19 ANTIGEN Routine 05/06/2022 5:58 PM SALES REPRESENTATIVE PRINTING SUPPLIES Acute recurrent pansinusitis POCT RAPID STREP Routine 05/06/2022 5:58 PM SALES REPRESENTATIVE PRINTING SUPPLIES Acute recurrent pansinusitis documented in this encounter Results * Throat culture Throat (05/06/2022 6:41 PM SALES REPRESENTATIVE PRINTING SUPPLIES) Report Final Report: No growth of pathogens. JUSTICE DANIELS Comment:Testing performed by : [facility], [address] [facility], [place]., [address] Throat 05/06/2022 6:41 PM SALES REPRESENTATIVE PRINTING SUPPLIES 05/07/2022 7:30 AM SALES REPRESENTATIVE PRINTING SUPPLIES Narrative JUSTICE - 05/08/2022 7:28 AM SALES REPRESENTATIVE PRINTING SUPPLIES Testing performed by [facility] ([phone]). us Tiffany Pino NP LAB MICROBIOLOGY - GENERAL ORD ERABLES Final Result [facility] [address] [place] [address] * POC Influenza A/B, COVID-19 antigen (05/06/2022 5:58 PM SALES REPRESENTATIVE PRINTING SUPPLIES) Influenza A Ag, POC Negative Negative [facility] Influenza B Ag, POC Negative Negative [facility] COVID-19 Ag POC Presumptive Negative Presumptive Negative, Invalid [facility] Nasal 05/06/2022 5:58 PM SALES REPRESENTATIVE PRINTING SUPPLIES us Tiffany Pino NP POINT OF CARE TEST ORDERABLES Final Result [facility] [address] [place] [address] * POCT rapid strep A (05/06/2022 5:58 PM SALES REPRESENTATIVE PRINTING SUPPLIES) Rapid Strep A, POC Negative Negative Swab 05/06/2022 5:58 PM SALES REPRESENTATIVE PRINTING SUPPLIES Result Hudson Pino NP POINT OF CARE TEST ORDERABLES Final Result documented in this encounter Visit Diagnoses Diagnosis Acute recurrent pansinusitis- Primary Acute recurrent pansinusitis documented in this encounter Historical Medications * This list may reflect changes made after this encounter. busPIRone (BUSPAR) 10 mg tablet Take by mouth 2 (two) times a day as needed 04/02/2022 added in this encounter Additional Health Concerns Infection Onset Date Last Indicated Resolved Time COVID: Suspected 05/06/2022 05/06/2022 05/06/2022 5:59 PM SALES REPRESENTATIVE PRINTING SUPPLIES documented as of this encounter Care Teams Metallurgical Engineering Teacher Relationship Specialty Start Date End Date Marli Pan MD PCP - General Family Medicine 05/06/22 documented as of this encounter
--- OUTSIDE RECORDS SUMMARY | 2024-02-28 14:18 | XMS_ITS | Referral Summary ---
Author Organization [facility] [address] [place] Address [address] [place] [id number] Care Team Providers Care Line Palletizer Name Role Phone Marli Pan MD Primary Care Provider [phone] Allergies No known active allergies Medications busPIRone [...] on file Legal Sex Female 8:58 AM CAR REPAIRER Gender Identity Not on file Sexual Orientation Not on file Last Filed Vital Signs Vital Sign Reading Time Taken Comments Blood Pressure 101/71 05/06/2022 5:37 PM CAR REPAIRER Pulse 104 05/06/2022 5:37 PM CAR REPAIRER Temperature 36.9 ??C (98.4 ??F) 05/06/2022 5:37 PM CS T Respiratory Rate 16 05/06/2022 5:37 PM CAR REPAIRER Oxygen Saturation 97% 05/06/2022 5:37 PM CAR REPAIRER Inhaled Oxygen Concentration - - Weight 82.1 kg (181 lb) 05/06/2022 5:37 PM CAR REPAIRER Height 167.6 cm (5' 6 ) 05/06/2022 5:37 PM CAR REPAIRER Body Mass Index 29.21 05/06/2022 5:37 PM CAR REPAIRER Plan of Treatment Not on file Insurance [place] [place] [employer] [place] Care Teams Line Palletizer Relationship Specialty Start Date End Date Marli Pan MD PCP - General Family Medicine 05/06/22
--- OUTSIDE RECORDS SUMMARY | 2024-02-28 15:03 | XMS_ITS | Encounter Summary ---
Author Organization [facility] Address [address] [place] [address]. [place], [place] [address] [place] [address] Care Team Providers Care Copy Director Name Role Phone Unavailable Primary Care Provider Unavailabl e Encounter Details Date Type Department Care Team (Late st Contact Info) Description 01/04/2017 Abstract [facility] [address] [place] [phone] Zuly Agustin APNP Social History Tobacco Use [...] CULTURE STREP A Routine 01/04/2017 3:45 PM CONTENT CHECKER documented in this encounter Results * CULTURE STREP A (01/04/2017 3:45 PM CONTENT CHECKER) SPEC DESCRIPTION THROAT 01/04/2017 5:46 PM CONTENT CHECKER [facility] SPECIAL REQUESTS NO SPECIAL REQUEST 01/04/2017 5:46 PM CONTENT CHECKER [facility] CULTURE RESULT NO STREPTOCOCCUS PYOGENES (GROUP A) ISOLATED 01/07/2017 11:12 AM CONTENT CHECKER [facility] THROAT SWAB / Unknown 01/04/2017 3:45 PM CONTENT CHECKER 01/04/2017 5:53 PM CONTENT CHECKER us Generic Conversion Md [facility] MICROBIOLOGY - GENERAL ORDERABLES Final Result [facility] [address] [place] [address], [place] [phone] [facility] [address] [place] [address], [place] [phone] documented in this encounter Visit Diagnoses Diagnosis Acute upper respiratory infection Acute upper respiratory infections of unspecified site documented in this encounter
--- OUTSIDE RECORDS SUMMARY | 2024-02-28 15:03 | XMS_ITS | Encounter Summary ---
Author Organization [facility] Address [address] [place] [address]. [place] [address] Care Team Providers Care Developmental Therapist Name Role Phone Unavailable Primary Care Provider Unavailabl e Encounter Details Date Type Department Care Team (Latest Contact Info) Description 09/16/2017 Abstract [facility] Social History Tobacco Use [...]
--- OUTSIDE RECORDS SUMMARY | 2024-02-28 15:03 | XMS_ITS | Encounter Summary ---
Author Organization [facility] Address [address] [place] [address]. [place] [phone] [place], [place] [id number] Care Team Providers Care Resident Intern Name Role Phone Unavailable Primary Care Provider Unavailabl e Encounter Details Date Type Department Care Team (Late st Contact Info) Description 02/08/2017 Abstract [facility] Family & Internal Medicine [facility] [address] [place] [address] Kourtney Carias MD Social History [...] Comments Blood Pressure 112/70 02/08/2017 10:23 AM FAUCETS ASSEMBLER Pulse 88 02/08/2017 10:23 AM FAUCETS ASSEMBLER Temperature - - Respiratory Rate - - Oxygen Saturation - - Inhaled Oxygen Concentration - - Weight 88 kg (194 lb) 02/08/2017 10:23 AM FAUCETS ASSEMBLER Height 165.1 cm (5' 5 ) 02/08/2017 10:23 AM FAUCETS ASSEMBLER Body Mass Index 32.28 02/08/2017 10:23 AM FAUCETS ASSEMBLER documented in this encounter Progress Notes * [...] ?? Occasional alcohol use ?? 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 Two children Immunizations [...] MCG/24HR Intrauterine Intrauterine Device; USE DIRECTED; Therapy: [id number] to Recorded Rx By: Dr. Arellano; Dispense: [...] disorder; NASREEN = N; Verified Transmission to [facility]; Last Updated By: AmrikmiLibris; 01/17/2017 12:46:59 PM 4. ZyrTEC Allergy 10 [...] location; NASREEN = N; Verified Transmission to [facility] # [id number]; Last Updated By: Morgan Rowley; 02/08/2017 10:40:43 AM Make sure to drink plenty of fluids and get plenty of rest, try tylenol or ibuprofen OTC PRN for myalgias/chills RTC as scheduled or sooner if no improvement Signatures Electronically signed by : Kourtney Carias M.D.; Feb 08 2017 10:43AM FAUCETS ASSEMBLER (Author) documented in this encounter Plan of Treatment Not on file documented as of this encounter Visit Diagnoses Not on filedocumented in this encounter
--- OUTSIDE RECORDS SUMMARY | 2024-02-28 15:03 | XMS_ITS | Encounter Summary ---
Author Organization [facility] Address [address] [place] [address]. [place] [address] [place] [address] Care Team Providers Care Derrick Car Operator Name Role Phone Unavailable Primary Care Provider Unavailabl e Encounter Details Date Type Department Care Team (Late st Contact Info) Description 04/29/2016 Abstract [facility] Family & Internal Medicine [facility] [address] [place] [address] [place] [address] [place] [address] Social History Tobacco Use Types [...] Comments Blood Pressure 104/70 04/29/2016 3:52 PM PAINTER STRUCTURAL STEEL Pulse 104 04/29/2016 3:52 PM PAINTER STRUCTURAL STEEL Temperature - - Respiratory Rate - - Oxygen Saturation - - Inhaled Oxygen Concentration - - Weight 80.7 kg (178 lb) 04/29/2016 3:52 PM PAINTER STRUCTURAL STEEL Height 165.1 cm (5' 5 ) 04/29/2016 3:52 PM PAINTER STRUCTURAL STEEL Body Mass Index 29.62 04/29/2016 3:52 PM PAINTER STRUCTURAL STEEL documented in this encounter Progress Notes * [...] SPRAY IN EACH NOSTRIL TWICE DAILY; Therapy: [id number] to Recorded 2. Mirena (52 MG) 20 MCG/24HR Intrauterine Intrauterine Device; USE DIRECTED; Therapy: [id number] to Recorded 3. Venlafaxine HCl ER 37.5 MG Oral Capsule Extended Release 24 Hour; TAKE 1 CAPSULE ONCE DAILY WITH FOOD for 1 week then take two capsules daily for 3 weeks; Therapy: [id number] to (Evaluate:05Mar2016) Requested for: [id number]; Last Rx:[id number] Ordered 4. ZyrTEC Allergy 10 MG Oral Tablet; TAKE 1 TABLET DAILY; Therapy: [id number] to (Evaluate:05Mar2016) Recorded Allergies 1. No Known [...] disorder; NASREEN = N; Verified Transmission to [facility] # [id number]; Last Updated By: Morgan Rowley; 04/29/2016 4:11:02 [...] Perla Ozuna NP; Apr 29 2016 8:41PM PAINTER STRU[employer]URAL STEEL (Author) documented in this encounter Plan of Treatment Not on file documented as of this encounter Visit Diagnoses Not on filedocumented in this encounter
--- OUTSIDE RECORDS SUMMARY | 2024-02-28 15:03 | XMS_ITS | Encounter Summary ---
Author Organization [facility] Address [address] [place] [address]. [place] [address] [place] [address] Care Team Providers Care Supervisor Wrapping Room Name Role Phone Unavailable Primary Care Provider Unavailabl e Encounter Details Date Type Department Care Team (Late st Contact Info) Description 07/08/2018 Abstract [facility] [address] [place] [address] Renetta Castañeda FNP 1 [place] [address] Social History Tobacco Use Types [...] MOLECULAR NEGATIVE NEGATIVE 07/08/2018 1:05 PM CDT [facility] Comment: NOTE: A negative result is highly sensitivefor S. pyogenes in throat specimens.This test does not distinguish between viableand non-viable organisms.If the result is negative and symptomspersist, additional testing is recommended torule out other pathogens. 07/08/2018 11:5 5 AM CDT us Generic Conversion Md BRADSHAW MICROBIOLOGY - GENERAL ORDERABLES Final Result Performing Organization Address City/[facility]/ZIP Co de Phone Number [facility] [address] [place] [address], [place] [phone] * RAPID STREP A (07/08/2018 11:55 AM CDT) RAPID STREP TEST NEGATIVE NEGATIVE 07/08/2018 12:08 PM CDT [facility] SERUM OR PLASMA SPECIMEN / Unknown 07/08/2018 11:55 AM CDT 07/08/2018 12:07 PM CDT Comment:ACELLULAR BLOOD (SER UM OR PLASMA) SPECIMEN us Generic Conversion Md BRADSHAW MICROBIOLOGY - GENERAL ORDERABLES Final Result Performing Organization Address [facility]/ZIP Co de Phone Number [facility] [address] [place] [address], [place] [phone] * INFLUENZA A & B (07/08/2018 11:55 AM CDT) SPECIMEN TYPE NASAL 07/08/2018 12:07 PM CDT [facility] INFLUENZA A NEGATIVE NEGATIVE 07/08/2018 12:17 PM CDT [facility] INFLUENZA B NEGATIVE NEGATIVE 07/08/2018 12:17 PM CDT [facility] 07/08/2018 11:5 5 AM CDT 07/08/2018 12:07 PM CDT us Generic Conversion Md BRADSHAW MICROBIOLOGY - GENERAL ORDERABLES Final Result Performing Organization Address City/[facility]/ZIP Co de Phone Number [facility] [address] [place] [address], documented in this encounter Visit Diagnoses Diagnosis Acute upper respiratory infection Acute upper respiratory infections of unspecified site documented in this encounter
--- OUTSIDE RECORDS SUMMARY | 2024-02-28 15:03 | XMS_ITS | Clinical Summary ---
Author Organization [facility] Address [address] [place] [address]. [place] [address] Care Team Providers Care Showcase Maker Name Role Phone Unavailable Primary Care Provider [...] Comments Blood Pressure 112/70 02/08/2017 10:23 AM DATA ACQUISITION TECHNICIAN Pulse 88 02/08/2017 10:23 AM DATA ACQUISITION TECHNICIAN Temperature - - Respiratory Rate - - Oxygen Saturation - - Inhaled Oxygen Concentration - - Weight 88 kg (194 lb) 02/08/2017 10:23 AM DATA ACQUISITION TECHNICIAN Height 165.1 cm (5' 5 ) 02/08/2017 10:23 AM DATA ACQUISITION TECHNICIAN Body Mass Index 32.28 02/08/2017 10:23 AM DATA ACQUISITION TECHNICIAN Plan of Treatment Health Maintenance Due Date [...]
--- OUTSIDE RECORDS SUMMARY | 2024-02-28 15:03 | XMS_ITS | Encounter Summary ---
Author Organization [facility] Address [address] [place] [address]. [place] [address] Care Team Providers Care Senior Design Engineering Specialist Name Role Phone Unavailable Primary Care Provider Unavailabl e Encounter Details Date Type Department Care Team (Latest Contact Info) Description 02/09/2016 Abstract [facility] Social History Tobacco Use [...]
--- OUTSIDE RECORDS SUMMARY | 2024-02-28 15:03 | XMS_ITS | Encounter Summary ---
Author Organization [facility] Address [address] [place] [address]. [place] [address] Care Team Providers Care Microfabrication Engineer Manager Name Role Phone Unavailable Primary Care Provider Unavailabl e Encounter Details Date Type Department Care Team (Latest Contact Info) Description 01/04/2017 [facility] Zuly Agustin APNP Social History [...] CULTURE STREP A Routine 01/04/2017 3:45 PM MINERAL MIXER documented in this encounter Results * CULTURE STREP A (01/04/2017 3:45 PM MINERAL MIXER) THROAT CULTURE STREP A ONLY SPECIMEN DESCRIPTION ? - THROAT SPECIAL REQUESTS ? - NO SPECIAL REQUEST CULTURE ?- NO STREPTOCOCCUS PYOGENES (GROUP A) ISOLATED REPORT STATUS ?- FINAL 01/07/2017 [facility] TO EPIC CONVERSION 01/04/2017 3:45 PM MINERAL MIXER 01/04/2017 3:45 PM MINERAL MIXER Narrative [facility] TO EPIC CONVERSION - 01/07/2017 11:12 AM MINERAL MIXER Result Communication: Discussed results with patient us Zuly DOWNS MICROBIOLOGY - GENERAL ORDER CHYNA Final Result [facility] TO EPIC CONVERSION documented in this encounter Visit Diagnoses Not on filedocumented in this encounter
--- OUTSIDE RECORDS SUMMARY | 2024-02-28 15:03 | XMS_ITS | Encounter Summary ---
Author Organization [facility] Address [address] [place] [address]. [place] [id number] [place], [place] [id number] Care Team Providers Care Information Coder Name Role Phone Unavailable Primary Care Provider Unavailabl e Encounter Details Date Type Department Care Team (Late st Contact Info) Description 10/21/2016 Abstract [facility] Group Family & Internal Medicine [facility] [address] [place] [address] Kehinde Schuster MD Social History [...] MCG/24HR Intrauterine Intrauterine Device; USE DIRECTED; Therapy: [id number] to Recorded 3. Venlafaxine HCl ER 37.5 MG Oral Capsule Extended Release 24 Hour; TAKE TWO TABS DAILY; Therapy: 04Feb2016 to (Last Rx:19Aug2016) Requested for: 19Aug2016 Ordered 4. ZyrTEC Allergy 10 MG Oral Tablet; TAKE 1 TABLET DAILY; Therapy: 04Feb2016 to (Evaluate:05Mar2016) Recorded Allergies 1. No Known Drug Allergies Vitals Recorded: 38Slr1045 03:15PM Temperature 98.6 F Heart Rate 86 [...] Acute sinusitis; NASREEN =N; Verified Transmission to [facility] # [id number]; Last Updated By: Morgan Rowley; 10/21/2016 3:44:37 [...] Kehinde Schuster M.D.; Oct 28 2016 10:42AM PRE PRESS OPERATOR (Author) documented in this encounter Plan of Treatment Not on file documented as of this encounter Visit Diagnoses Not on filedocumented in this encounter
--- OUTSIDE RECORDS SUMMARY | 2024-02-28 15:03 | XMS_ITS | Encounter Summary ---
Author Organization [facility] Address [address] [place] [address]. [place] [address] Care Team Providers Care Chief Service Observer Name Role Phone Unavailable Primary Care Provider Unavailabl e Reason for Visit * Reason Comments Report (SCAN) [facility] - History and Physical Encounter Details Date Type Department Care Team ([facility] Contact Info) Description 03/20/2018 Scan HEALTH INFO [facility] Scanned, Documents Report (SCAN) ([facility] - History and Physical) Social History Tobacco [...]
--- OUTSIDE RECORDS SUMMARY | 2024-02-28 15:03 | XMS_ITS | Encounter Summary ---
Author Organization [facility] Address [address] [place] [address]. [place] [address] Care Team Providers Care Supervisor Home Economics Name Role Phone Unavailable Primary Care Provider Unavailabl e Encounter Details Date Type Department Care Team (Latest Contact Info) Description 01/07/2017 Abstract [facility] Social History Tobacco Use [...] CST Verified Results Group A Streptococcus Culture [id number] 03:45PM Zuly Agustin Test Name Result Flag [...]
--- OUTSIDE RECORDS SUMMARY | 2024-02-28 15:03 | XMS_ITS | Encounter Summary ---
Author Organization [facility] Address [address] [place] [address]. [place] [id number] [place], [place] [id number] Care Team Providers Care Exhibitions Curator Name Role Phone Unavailable Primary Care Provider Unavailabl e Encounter Details Date Type Department Care Team (Late st Contact Info) Description 01/04/2017 Abstract [facility] Family & Internal Medicine [facility] [address] [place] [address] Zuly Agustin APNP Social History [...] Comments Blood Pressure 108/62 01/04/2017 3:01 PM ASPHALT PAVING MACHINE OPERATOR Pulse 82 01/04/2017 3:01 PM ASPHALT PAVING MACHINE OPERATOR Temperature - - Respiratory Rate - - Oxygen Saturation - - Inhaled Oxygen Concentration - - Weight 87.1 kg (192 lb) 01/04/2017 3:01 PM ASPHALT PAVING MACHINE OPERATOR Height 165.1 cm (5' 5 ) 01/04/2017 3:01 PM ASPHALT PAVING MACHINE OPERATOR Body Mass Index 31.95 01/04/2017 3:01 PM ASPHALT PAVING MACHINE OPERATOR documented in this encounter Progress Notes * [...] a smoker Occasional alcohol use 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 PredniSONE 20 MG Oral Tablet; TAKE 2 TABLET Daily Rx By: Zuly Agustin; Dispense: 4 Days ; #:8 Tablet; Refill: 0; For: Upper respiratory infection,acute; NASREEN = N; Sent To: [facility] # 61176 3. Influenza Type A / B Rapid Ag; Status:Canceled - Manual Activation; Perform:[facility]; Due:[id number]; Last Updated By:Naila Aparicio; 01/04/2017 4:00:02 PM;Ordered; For:Upper respiratory infection, acute; Ordered By:Zuly Agustin; 4. Rapid Strep Group A Ag Screen; Status:Canceled - Manual Activation; Perform:[facility]; Due:[id number]; Last Updated By:Naila Aparicio; 01/04/2017 4:00:02 PM;Ordered; [...] Zuly Agustin NP; Jan 04 2017 4:56PM ASPHALT PAVING MACHINE OPERATOR (Author) documented in this encounter Plan of Treatment Not on file documented as of this encounter Procedures Procedure Name Priority Date/Time Associated Diagnosis Comments INFLUENZA A & B Routine 01/04/2017 3:59 PM ASPHALT PAVING MACHINE OPERATOR STREP A RAPID Routine 01/04/2017 3:57 PM ASPHALT PAVING MACHINE OPERATOR documented in this encounter Results * INFLUENZA A & B (01/04/2017 3:59 PM ASPHALT PAVING MACHINE OPERATOR) INFULENZA A AB Negative [facility] OUP TO EPIC CONVERSION INFLUENZA B AB Negative [facility] OUP TO EPIC CONVERSION Internal Control: Yes [facility] TO EPIC CONVERSION 01/04/2017 3:59 PM ASPHALT PAVING MACHINE OPERATOR 01/04/2017 3:59 PM ASPHALT PAVING MACHINE OPERATOR Narrative [facility] TO EPIC CONVERSION - 01/04/2017 3:59 PM ASPHALT PAVING MACHINE OPERATOR Result Communication: Discussed results with patient us Zuly GONZALEZNP MICROBIOLOGY - GENERAL ORDER CHYNA Final Result [facility] TO EPIC CONVERSION * STREP A RAPID (01/04/2017 3:57 PM ASPHALT PAVING MACHINE OPERATOR) [facility] Signature RAPID STREP TEST Presumptive Negative [facility] TO EPIC CONVERSION Internal Control: Yes [facility] TO EPIC CONVERSION 01/04/2017 3:57 PM ASPHALT PAVING MACHINE OPERATOR 01/04/2017 3:57 PM ASPHALT PAVING MACHINE OPERATOR Narrative [facility] TO EPIC CONVERSION - 01/04/2017 3:57 PM ASPHALT PAVING MACHINE OPERATOR Result Communication: Discussed results with patient us Zuly DOWNS MICROBIOLOGY - GENERAL ORDER CHYNA Final Result [facility] TO EPIC CONVERSION documented in this encounter Visit Diagnoses Not on filedocumented in this encounter
--- OUTSIDE RECORDS SUMMARY | 2024-02-28 15:03 | XMS_ITS | Encounter Summary ---
Author Organization [facility] Address [address] [place] [address]. [place] [address] Care Team Providers Care Platen Press Operator Name Role Phone Unavailable Primary Care Provider Unavailabl e Encounter Details Date Type Department Care Team (Latest Contact Info) Description 01/06/2017 Abstract [facility] Group Social History Tobacco [...] CST Verified Results Group A Streptococcus Culture [id number] 03:45PM Zuly Agustin Test Name Result Flag [...]
--- OUTSIDE RECORDS SUMMARY | 2024-02-28 15:03 | XMS_ITS | Encounter Summary ---
Author Organization [facility] Address [address] [place] [address]. [place] [address] [place] [address] Care Team Providers Care Instrument Mechanic Weapons System Name Role Phone Unavailable Primary Care Provider Unavailabl e Encounter Details Date Type Department Care Team (Late st Contact Info) Description 08/19/2016 Abstract [facility] Family & Internal Medicine [facility] [address] [place] [address] [place] [address] [place] [address] Social History Tobacco Use Types [...] SPRAY IN EACH NOSTRIL TWICE DAILY; Therapy: [id number] to Recorded 2. Mirena (52 MG) 20 MCG/24HR Intrauterine Intrauterine Device; USE DIRECTED; Therapy: 55Xkn1241 to Recorded 3. Venlafaxine HCl ER 37.5 MG Oral Capsule Extended Release 24 Hour; TAKE TWO TABS DAILY; Therapy: 13Htd6668 to (Last Rx:01Jun2016) Requested for: 01Jun2016 Ordered 4. ZyrTEC Allergy 10 MG Oral Tablet; TAKE 1 TABLET DAILY; Therapy: 44Oxh3435 to (Evaluate:05Mar2016) Recorded Allergies 1. No Known [...] anxiety disorder; NASREEN = N; Sent To: [facility] # [id number] 2. Follow-up visit in 6 months Outpatient Follow-up Status: Hold For - Scheduling Requested for: 19Aug2016 Ordered; For: Generalized anxiety disorder; Ordered By: Perla Ozuna Performed: Due: 87Osr9661 Pt is feeling much better, anxiety better and is sleeping well at this time Pt is out of school less stresses but all is better. Signatures Electronically signed by : Perla Ozuna NP; Aug 19 2016 1:42PM PHOTOGRAPHY TEACHER (Author) documented in this encounter Plan of Treatment Not on file documented as of this encounter Visit Diagnoses Not on filedocumented in this encounter
--- OUTSIDE RECORDS SUMMARY | 2024-02-28 15:03 | XMS_ITS | Encounter Summary ---
Author Organization [facility] Address [address] [place] [address]. [place] [address] Care Team Providers Care Butadiene Convertor Operator Name Role Phone Unavailable Primary Care Provider Unavailabl e Encounter Details Date Type Department Care Team (Latest Contact Info) Description 08/12/2016 Abstract [facility] Social [...]
--- OUTSIDE RECORDS SUMMARY | 2024-02-28 15:03 | XMS_ITS | Encounter Summary ---
Author Organization [facility] Address [address] [place] [address]. [place] [address] Care Team Providers Care Microfilm Operator Name Role Phone Unavailable Primary Care Provider Unavailabl e Encounter Details Date Type Department Care Team (Latest Contact Info) Description 02/17/2017 Abstract [facility] Social History Tobacco Use [...] Boykin Task Name: Call Back Assigned To: [facility] Nurse Team Regarding Patient: Dilcia Mccloud, Status: Active Comment: Aury Boykin - 17 Feb 2017 2:40 PM TASK CREATED Christina from [facility] in [place] called because pt's insurance will not cover 2 tabs a day of the venlafaxine. Can they give her 75 mg tabs once a day? Call them back [phone] Angelia Estrada - 17 Feb 2017 2:47 [...] disorder; NASREEN = N; Verified Transmission to [facility] # [id number]; Last Updated By: Angelia Estrada;02/17/2017 3:10:42 PM 2. Venlafaxine HCl ER 75 MG Oral Capsule Extended Release 24 Hour; TAKE 1 CAPSULE ONCE DAILY WITH FOOD Rx By: Perla Ozuna; Dispense: 30 Days ; #:30 Capsule; Refill: 0; For: Generalized anxiety disorder; NASREEN = N; Sent To: [facility] # [id number]; Last Updated By: Angelia Estrada; 02/17/2017 3:10:52 PM Signatures Electronically signed by : Angelia Estrada, ; Feb 17 2017 3:11PM CONTAINER FILLER (Author) documented in this encounter Plan of Treatment Not on file documented as of this encounter Visit Diagnoses Not on filedocumented in this encounter
--- OUTSIDE RECORDS SUMMARY | 2024-02-28 15:03 | XMS_ITS | Encounter Summary ---
Author Organization [facility] Address [address] [place] [address]. [place] [phone] [place], [place] [id number] Care Team Providers Care Electro Optical Engineer Name Role Phone Unavailable Primary Care Provider Unavailabl e Encounter Details Date Type Department Care Team (Late st Contact Info) Description 02/04/2016 Abstract [facility] Family & Internal Medicine [facility] [address] [place] [address] Kourtney Carias MD Social History [...] Comments Blood Pressure 104/70 02/04/2016 9:21 AM PHONOGRAPH CARTRIDGE ASSEMBLER Pulse 88 02/04/2016 9:21 AM PHONOGRAPH CARTRIDGE ASSEMBLER Temperature - - Respiratory Rate - - Oxygen Saturation - - Inhaled Oxygen Concentration - - Weight 82.1 kg (181 lb) 02/04/2016 9:21 AM PHONOGRAPH CARTRIDGE ASSEMBLER Height 165.1 cm (5' 5 ) 02/04/2016 9:21 AM PHONOGRAPH CARTRIDGE ASSEMBLER Body Mass Index 30.12 02/04/2016 9:21 AM PHONOGRAPH CARTRIDGE ASSEMBLER documented in this encounter Progress Notes * Kourtney Carias MD - 02/04/2016 9:00 AM CST Reason For Visit New Patient Visit Chief Complaint 1. Anxiety 2. Nasal Symptoms Here as a new patient, wants to discuss her anxiety. 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 Also just started with some nasal [...] SPRAY IN EACH NOSTRIL TWICE DAILY; Therapy: [id number] to Recorded Rx By: Kourtney Carias; Dispense: 0 Days ; #:1 X 16 GM Bottle; Refill: 1; For: Chronic sinusitis; NASREEN =N; Record 2. Mirena (52 MG) 20 MCG/24HR Intrauterine Intrauterine Device; USE DIRECTED; Therapy: [id number] to Recorded Rx By: Dr. Arellano; Dispense: 0 Days ; #: Sufficient Intrauterine Device; Refill: 0; NASREEN = N; Record; Last Updated By: Aida Jarrett; 02/04/2016 9:20:58 AM 3. ZyrTEC Allergy 10 MG Oral Tablet; TAKE 1 TABLET DAILY; Therapy: 76Mwz1684 to (Evaluate:05Mar2016) Recorded Rx By: Kourtney Carias; [...] Status: Hold For - Scheduling Requested for: 61Dqh1589 Ordered; For: Chronic sinusitis; Ordered By: Kourtney Carias Performed: Due: 39Zhf7816 Generalized anxiety disorder 2. Venlafaxine HCl ER 37.5 MG Oral Capsule Extended Release 24 Hour; TAKE 1 CAPSULE ONCE DAILY WITH FOOD for 1 week then take two capsules daily for 3 weeks Rx By: Kourtney Carias; Dispense: 30 Days ; #:60 Capsule Extended Release 24 Hour; Refill: 0; For: Generalized anxiety disorder; NASREEN = N; Verified Transmission to [facility] # [id number]; Last Updated By: Morgan Rowley; 02/04/2016 9:44:39 AM Signatures Electronically signed by : Kourtney Carias M.D.; Feb 04 2016 9:59AM PHONOGRAPH CARTRIDGE ASSEMBLER (Author) documented in this encounter Plan of Treatment Not on file documented as of this encounter Visit Diagnoses Not on filedocumented in this encounter
--- OUTSIDE RECORDS SUMMARY | 2024-02-28 15:03 | XMS_ITS | Encounter Summary ---
Author Organization [facility] Address [address] [place] [address]. [place] [address] Care Team Providers Care Crystalizer Name Role Phone Unavailable Primary Care Provider Unavailabl e Encounter Details Date Type Department Care Team (Late st Contact Info) Description 03/17/1999 Abstract [facility] [address] [place] [address] , Toby Agrawal MD Social History Tobacco [...]
--- OUTSIDE RECORDS SUMMARY | 2024-02-28 15:03 | XMS_ITS | Encounter Summary ---
Author Organization [facility] Address [address] [place] [address]. [place] [address] Care Team Providers Care Medart Operator Name Role Phone Unavailable Primary Care [...]
--- OUTSIDE RECORDS SUMMARY | 2024-02-28 15:03 | XMS_ITS | Encounter Summary ---
Author Organization [facility] Address [address] [place] [address]. [place] [address] [place] [address] Care Team Providers Care Loss Prevention Guard Name Role Phone Unavailable Primary Care Provider Unavailabl e Encounter Details Date Type Department Care Team (Late st Contact Info) Description 06/01/2016 Abstract [facility] Medical Group Family & Internal Medicine [facility] [address] [place] [address] [place] [address] [place] [address] Social History Tobacco Use Types [...] Oral Tablet; TAKE 1 TABLET DAILY; Therapy: 63Uvd1797 to (Evaluate:05Mar2016) Recorded Allergies 1. No Known [...] disorder; NASREEN = N; Verified Transmission to [facility] # [id number]; Last Updated By: Morgan Rowley; 06/01/2016 4:25:13 PM 2. Follow-up visit in 2 months Outpatient Follow-up Status: Complete Done: 01Jun2016 Ordered; For: Generalized anxiety disorder; Ordered By: Perla Ozuna Performed: Due: 15Jun2016; Last Updated By: Angella Kincaid; 06/01/2016 5:53:05 PM pt is doing very good with the medication Signatures Electronically signed by : Perla Ozuna NP; Jun 01 2016 10:10PM PAYROLL AND BENEFITS SPECIALIST (Author) documented in this encounter Plan of Treatment Not on file documented as of this encounter Visit Diagnoses Not on filedocumented in this encounter
--- OUTSIDE RECORDS SUMMARY | 2024-02-28 15:05 | XMS_ITS | Encounter Summary ---
Author Organization [facility] Address [address] [address] Care Team Providers Care Nuclear Reactor Technician Name Role Phone Marli Pan MD Primary Care Provider [phone] Reason for Visit * Reason Comments Sore Throat Sinus pain, cough fo r over a week and a half. Encounter Details Date Type Department Care Team (Late st Contact Info) Description 05/06/2022 5:30 PM FINDING FASTENER Office Visit [facility] [address] [id number] [place] [address] [place] [address] [address] [place] [address] Acute recurrent pansinusitis (Primary Dx) Social History Tobacco Use Types Packs/Day Years Used Date Smoking Tobacco: Never Assessed Comments Unknown Sex and Gender Information Value Date Recorded Sex Assigned at Not on file Legal Sex Female 8:58 AM FINDING FASTENER Gender Identity Not on file Sexual Orientation Not on file documented as of this encounter Last Filed Vital Signs Vital Sign Reading Time Taken Comments Blood Pressure 101/71 05/06/2022 5:37 PM FINDING FASTENER Pulse 104 05/06/2022 5:37 PM FINDING FASTENER Temperature 36.9 ??C (98.4 ??F) 05/06/2022 5:37 PM CS T Respiratory Rate 16 05/06/2022 5:37 PM FINDING FASTENER Oxygen Saturation 97% 05/06/2022 5:37 PM FINDING FASTENER Inhaled Oxygen Concentration - - Weight 82.1 kg (181 lb) 05/06/2022 5:37 PM FINDING FASTENER Height 167.6 cm (5' 6 ) 05/06/2022 5:37 PM FINDING FASTENER Body Mass Index 29.21 05/06/2022 5:37 PM FINDING FASTENER documented in this encounter Patient Instructions * Patient Instructions* Tiffany Pino, MANAGER MONITORING - 05/06/2022 5:30 PM FINDING FASTENER Symptomatic treatments include: -Over the counter antihistamine [...] same utensils or glass, and use hand pipe changer before touching people or common surfaces. -Apply [...] SERIOUS COMPLICATION AND REQUIRES IMMEDIATE EMERGENCY ATTENTION. ING FASTENER * Attachments The following attachments cannot be sent through Care Everywhere. * Sinusitis (Distillation Operator) (Angolan) documented in this encounter Ordered Prescriptions Prescription [...] and frontal sinus tenderness present. Mouth/Throat: Lips: [place]. Mouth: Mucous membranes are moist. Pharynx: Uvula [...] same utensils or glass, and use hand pipe changer before touching people or common surfaces. -Apply [...] REQUIRES IMMEDIATE EMERGENCY ATTENTION. Tiffany Pino NP ING FASTENER documented in this encounter Miscellaneous Notes * Addendum Note - August Correa MA - 05/06/2022 5:30 PM CSTAddended by: AUGUST CORREA on: 05/06/2022 06:41 PM Modules accepted: Orders ING FASTENER documented in this encounter Plan of Treatment Not on file documented as of this encounter Procedures Procedure Name Priority Date/Time Associated Diagnosis Comments POC INFLUENZA A/B, COVID-19 ANTIGEN Routine 05/06/2022 5:58 PM FINDING FASTENER Acute recurrent pansinusitis POCT RAPID STREP Routine 05/06/2022 5:58 PM FINDING FASTENER Acute recurrent pansinusitis documented in this encounter Results * Throat culture Throat (05/06/2022 6:41 PM FINDING FASTENER) Report Final Report: No growth of pathogens. JUSTICE DANIELS Comment:Testing performed by : [facility], [address], [place]., [address] Throat 05/06/2022 6:41 PM FINDING FASTENER 05/07/2022 7:30 AM FINDING FASTENER Narrative JUSTICE - 05/08/2022 7:28 AM FINDING FASTENER Testing performed by [facility] Microbiology Laboratory ([phone]). us Tiffany Pino NP LAB MICROBIOLOGY - GENERAL ORD ERABLES Final Result [facility] [id number] Department [place] [address] * POC Influenza A/B, COVID-19 antigen (05/06/2022 5:58 PM FINDING FASTENER) Influenza A Ag, POC Negative Negative [facility] Influenza B Ag, POC Negative Negative [facility] COVID-19 Ag POC Presumptive Negative Presumptive Negative, Invalid [facility] Nasal 05/06/2022 5:58 PM FINDING FASTENER us Tiffany Pino NP POINT OF CARE TEST ORDERABLES Final Result [facility] [address] [place] [address] * POCT rapid strep A (05/06/2022 5:58 PM FINDING FASTENER) Rapid Strep A, POC Negative Negative Swab 05/06/2022 5:58 PM FINDING FASTENER Result Hudson Pino NP POINT OF CARE [...] COVID: Suspected 05/06/2022 05/06/2022 05/06/2022 5:59 PM FINDING FASTENER documented as of this encounter Care Teams Nuclear Reactor Technician Relationship Specialty Start Date End Date Marli Pan MD PCP - General Family Medicine 05/06/22 documented as of this encounter
--- OUTSIDE RECORDS SUMMARY | 2024-02-28 15:05 | XMS_ITS | Encounter Summary ---
Author Organization [facility] Address [address] [place] [address] Care Team Providers Care Truss Builder Name Role Phone Marli Pan MD Primary Care Provider [phone] Encounter Details Date Type Department Care Team (Latest Contact Info) Description 05/06/2022 6:41 PM INTERMEDIATE DESIGNER - 05/06/2022 11:59 PM INTERMEDIATE DESIGNER Hospital Encounter [address] [address] Acute recurrent pansinusitis Discharge Disposition: Discharge to home or self care Social History Tobacco Use Types Packs/Day Years Used Date Smoking Tobacco: Never Assessed Comments Unknown Sex and Gender Information Value Date Recorded Sex Assigned at Not on file Legal Sex Female 8:58 AM INTERMEDIATE DESIGNER Gender Identity Not on file Sexual Orientation [...] Tiffany Pino NP - 05/06/2022 11:59 PM INTERMEDIATE DESIGNER Please alert patient of negative strep culture. Patient should continue tylenol/ibuprofen as directed for discomfort and f/u with PCP if symptoms persist. RMEDIATE DESIGNER documented in this encounter Plan of Treatment Not on file documented as of this encounter Procedures Procedure Name Priority Date/Time Associated Diagnosis Comments THROAT CULTURE Routine 05/06/2022 6:41 PM INTERMEDIATE DESIGNER Acute recurrent pansinusitis documented in this encounter Results * Throat culture Throat (05/06/2022 6:41 PM INTERMEDIATE DESIGNER) Report Final Report: No growth of pathogens. JUSTICE DANIELS Comment:Testing performed by : [facility], [address] [place] [address]., [address] Throat 05/06/2022 6:41 PM INTERMEDIATE DESIGNER 05/07/2022 7:30 AM INTERMEDIATE DESIGNER Narrative JUSTICE DANIELS - 05/08/2022 7:28 AM INTERMEDIATE DESIGNER Testing performed by [facility] Microbiology Laboratory ([phone]). Tiffany Pino NP LAB MICROBIOLOGY - GENERAL ORD ERABLES Final Result [facility] [address] Department of Laboratories [place], [place] [id number] documented in this encounter Visit Diagnoses Diagnosis Acute recurrent pansinusitis documented in this encounter Care Teams Truss Builder Relationship Specialty Start Date End Date Marli Pan MD PCP - General Family Medicine 05/06/22 documented as of this encounter
--- OUTSIDE RECORDS SUMMARY | 2024-02-28 15:05 | XMS_ITS | Clinical Summary ---
Author Organization [facility] [address] Address [address] [place] [phone] Care Team Providers Care Shingles Roofer Helper Name Role Phone Marli Pan MD Primary Care Provider [phone] Allergies No known active allergies Medications busPIRone [...] on file Legal Sex Female 8:58 AM GRINDER SET UP OPERATOR UNIVERSAL Gender Identity Not on file Sexual Orientation Not on file Obstetrics History Last Filed Vital Signs Vital Sign Reading Time Taken Comments Blood Pressure 101/71 05/06/2022 5:37 PM GRINDER SET UP OPERATOR UNIVERSAL Pulse 104 05/06/2022 5:37 PM GRINDER SET UP OPERATOR UNIVERSAL Temperature 36.9 ??C (98.4 ??F) 05/06/2022 5:37 PM CS T Respiratory Rate 16 05/06/2022 5:37 PM GRINDER SET UP OPERATOR UNIVERSAL Oxygen Saturation 97% 05/06/2022 5:37 PM GRINDER SET UP OPERATOR UNIVERSAL Inhaled Oxygen Concentration - - Weight 82.1 kg (181 lb) 05/06/2022 5:37 PM GRINDER SET UP OPERATOR UNIVERSAL Height 167.6 cm (5' 6 ) 05/06/2022 5:37 PM GRINDER SET UP OPERATOR UNIVERSAL Body Mass Index 29.21 05/06/2022 5:37 PM GRINDER SET UP OPERATOR UNIVERSAL Plan of Treatment Health Maintenance Due Date [...] patient's age to complete this topic Insurance [email or web address] [place] [email or web address] [place] Care Teams Shingles Roofer Helper Relationship Specialty Start Date End Date Marli Pan MD PCP - General Family Medicine 05/06/22
--- OUTSIDE RECORDS SUMMARY | 2024-02-28 15:05 | XMS_ITS | Referral Summary ---
Author Organization [facility] [address] Address [address] [place] [phone] Care Team Providers Care Lubrication Technician Name Role Phone Marli aPn MD Primary Care Provider [phone] Allergies No known active allergies Medications busPIRone [...] on file Legal Sex Female 8:58 AM STONEMASON SUPERVISOR Gender Identity Not on file Sexual Orientation Not on file Last Filed Vital Signs Vital Sign Reading Time Taken Comments Blood Pressure 101/71 05/06/2022 5:37 PM STONEMASON SUPERVISOR Pulse 104 05/06/2022 5:37 PM STONEMASON SUPERVISOR Temperature 36.9 ??C (98.4 ??F) 05/06/2022 5:37 PM CS T Respiratory Rate 16 05/06/2022 5:37 PM STONEMASON SUPERVISOR Oxygen Saturation 97% 05/06/2022 5:37 PM STONEMASON SUPERVISOR Inhaled Oxygen Concentration - - Weight 82.1 kg (181 lb) 05/06/2022 5:37 PM STONEMASON SUPERVISOR Height 167.6 cm (5' 6 ) 05/06/2022 5:37 PM STONEMASON SUPERVISOR Body Mass Index 29.21 05/06/2022 5:37 PM STONEMASON SUPERVISOR Plan of Treatment Not on file Insurance [employer] [place] [employer] [facility] [place] Care Teams Lubrication Technician Relationship Specialty Start Date End Date Marli Pan MD PCP - General Family Medicine 05/06/22
== END 2024-02-21 10:00 | disposition home or self-care (01) ==
PROVIDERS: Emergency Provider Nurse Practitioner Family; PCP Family Medicine
DX: J10.1 Influenza due to other identified influenza virus with other respiratory manifestations (principal); J01.90 Acute sinusitis, unspecified; B96.89 Other specified bacterial agents as the cause of diseases classified elsewhere; Z20.822 Contact with and (suspected) exposure to COVID-19
CPT/HCPCS: 71046; 87426; 87804; 99213; G0463

== ENCOUNTER 2024-12-20 15:34 | Outpatient (CLI) | payer BC, SELFPAY ==
--- NOTE | ~2024-12-20 | MM_ITS ---
EXAMINATION: MM screening natty BI w javan HISTORY: Screening TECHNIQUE: Craniocaudal and mediolateral oblique 3-D tomosynthesis images were obtained and synthetic 2-D images were generated. CAD analysis was submitted and interpreted. COMPARISON: Comparison to multiple prior studies sequentially, with oldest reviewed study dated , 10/19/2021 BREAST PARENCHYMAL COMPOSITION: There are scattered areas of fibroglandular density. FINDINGS: There is no evidence of suspicious mass, calcification, or architectural distortion to suggest malignancy in either breast. IMPRESSION: 1. No mammographic evidence of malignancy. 2. Recommend routine screening mammography in one year. BI-RADS Category 1: Negative Reviewed, dictated and finalized at location B.
== END 2024-12-20 15:35 | disposition home or self-care (01) ==
LOC: MICIMG 15:34
PROVIDERS: PCP Family Medicine; Visit Provider Obstetrics & Gynecology
DX: Z12.31 Encounter for screening mammogram for malignant neoplasm of breast (principal)
CPT/HCPCS: 77063; 77067